=== PATIENT | female | born 1935 | race Caucasian/White ===

== ENCOUNTER 2019-09-19 07:44 | Outpatient (CLI) | payer MEDICARE, SELFPAY ==
[2019-09-19 08:17] LABS: Creatinine Urine 174.2 mg/dL; Total Protein Urine Random 17 mg/dL
[2019-09-19 08:25] LABS: Albumin Level 4.2 g/dL (3.5-5.1); Blood Urea Nitrogen 18 mg/dL (7-17); Calcium 9.5 mg/dL (8.4-10.2); Carbon Dioxide 27 mmol/L (22-30); Chloride 102 mmol/L (98-107); Estimated Glomerular Filt Rate 36; Glucose 120 mg/dL (65-105); Phosphorus 3.9 mg/dL (2.5-4.5); Potassium 3.8 mmol/L (3.4-5.0); Sodium 139 mmol/L (137-145)
== END 2019-09-19 07:45 | disposition home or self-care (01) ==
LOC: ANHLAB 07:48
PROVIDERS: PCP Family Medicine; Visit Provider Internal Medicine Nephrology
DX: N18.3 Chronic kidney disease, stage 3 (moderate) (principal)
CPT/HCPCS: 36415; 80069; 82570; 84156

== ENCOUNTER 2019-09-20 08:18 | Outpatient (CLI) | payer MEDICARE, SELFPAY ==
[2019-09-20 09:57] LABS: Total Volume 24 Hour Urine 1400 ml
== END 2019-09-20 08:19 | disposition home or self-care (01) ==
PROVIDERS: PCP Family Medicine; Visit Provider Internal Medicine Nephrology
DX: N18.3 Chronic kidney disease, stage 3 (moderate) (principal)
CPT/HCPCS: 81050; 84540

== ENCOUNTER 2020-02-06 11:18 | Outpatient (CLI) | payer MEDICARE, SELFPAY | END 2020-02-06 11:19 | disposition home or self-care (01) | LOC: ANHLAB 11:22 | PROVIDERS: PCP Family Medicine; Visit Provider Physician Assistant | DX: N39.0 Urinary tract infection, site not specified (principal) | CPT/HCPCS: 87086; 87088 ==

== ENCOUNTER 2020-04-27 07:07 | Outpatient (CLI) | payer MEDICARE, SELFPAY ==
--- NOTE | ~2020-04-27 | XR_ITS ---
XR lumbar spine 2-3V DATE: 04/27/2020 08:01 INDICATION: Back pain TECHNIQUE: AP, lateral, coned lateral lumbosacral views COMPARISON: None FINDINGS: There is levoscoliosis . There is prominent degenerative disc disease at L2-3, L3-4, L4-5. There is diffuse osteopenia. No fracture or bone destruction or spondylolisthesis. The sacroiliac joints are normal. IMPRESSION: Scoliosis Multi-level degenerative disc disease Osteopenia Reviewed, dictated and finalized at location A.
--- NOTE | ~2020-04-27 | XR_ITS ---
XR chest 2V DATE: 04/27/2020 08:01 INDICATION: Polyarthralgia TECHNIQUE: PA and lateral views COMPARISON: 06/10/2018 PA and lateral chest FINDINGS: Normal heart size. No hilar or mediastinal enlargement. No pulmonary infiltrate or consolid ation, pleural effusion or pulmonary vascular congestion or pneumothorax. Diffuse osteopenia. IMPRESSION: No active cardiopulmonary disease Reviewed, dictated and finalized at location A.
--- NOTE | ~2020-04-27 | XR_ITS ---
EXAMINATION: XR hand BI arthritis min 3V EXAM DATE: 04/27/2020 08:01 INDICATION: Polyarthralgia. TECHNIQUE: Right hand frontal, lateral and oblique projections obtained and reviewed. Left hand fron carola, lateral and oblique projections obtained and reviewed. Catchers projection of both hands. Compar alyssa is made to prior examination from 07/01/2019. 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 There are no bony erosions identified. There are no acute fractures o r dislocations identified. There is no subcutaneous gas. The soft tissue is unremarkable. There a re no radiopaque foreign bodies. Left hand: There is polyarticular primary osteoarthritis as follows: Moderate 1st carpometacarpal and 3rd distal interphalangeal, mild to moderate 2nd distal interphalangeal, otherwise mild interphalang eal. There are no acute fractures or dislocations identified. There is no subcutaneous gas. The sof t tissue is unremarkable. There are no radiopaque foreign bodies. There are no bony erosions ident ified. IMPRESSION: Bilateral hand, wrist polyarticular osteoarthritis, bilateral 1st carpometacarpal joints and left 3rd DIP joint most affected. Reviewed, dictated and finalized at location A. IMPRESSION: Bilateral hand, wrist polyarticular osteoarthritis, bilateral 1st c arpometacarpal joints and left 3rd DIP joint most affected.
--- NOTE | ~2020-04-27 | XR_ITS ---
XR sacroiliac joints min 3V DATE: 04/27/2020 08:01 INDICATION: Polyarthralgia. Sacroiliac pain. TECHNIQUE: AP and bilateral oblique views COMPARISON: None FINDINGS: The pubic symphysis and sacroiliac joints are intact. No fracture or dislocation. No erosiv e change or ankylosis. Hip joint spaces are symmetric and relatively preserved. Levoscoliosis and degenerative disc disease of the lumbar spine. IMPRESSION: Levoscoliosis and multilevel degenerative disc disease of the lumbar spine Negative sacroiliac joints Reviewed, dictated and finalized at Location A. Reviewed, dictated and finalized at location A. IMPRESSION: Levoscoliosis and multilevel degenerative disc disease of the lumba r spine Negative sacroiliac joints
--- NOTE | ~2020-04-27 | XR_ITS ---
XR hip RT min 2V 04/27/2020 08:01 Indication: Right hip pain Procedure: 2 views right hip Comparison: No prior studies for comparison. Findings: Mild osteoarthritis of the right hip. No fracture or traumatic malalignment. No significant soft tissue abnormality. No foreign body. Impression: 1: Mild osteoarthritis of the right hip. Reviewed, dictated and finalized at location A. Impression: 1: Mild osteoarthritis of the right hip.
== END 2020-04-27 07:08 | disposition home or self-care (01) ==
PROVIDERS: PCP Family Medicine; Visit Provider Physician Assistant
DX: M19.041 Primary osteoarthritis, right hand (principal); M19.042 Primary osteoarthritis, left hand; M19.031 Primary osteoarthritis, right wrist; M19.032 Primary osteoarthritis, left wrist; M51.36 Other intervertebral disc degeneration, lumbar region; M16.11 Unilateral primary osteoarthritis, right hip; M41.9 Scoliosis, unspecified; M85.88 Other specified disorders of bone density and structure, other site
CPT/HCPCS: 71046; 72100; 72202; 73130; 73502

== ENCOUNTER 2020-05-19 10:49 | Outpatient (CLI) | payer MEDICARE, SELFPAY ==
--- NOTE | ~2020-05-19 | XR_ITS ---
. EXAMINATION: XR lg joint inject/asp w image DATE: 05/19/2020 11:37 INDICATION: Unilateral primary osteoarthritis, right hip. TECHNIQUE: A time-out was performed to verify the patient's name, date of , and procedure to b e performed. The procedure including the risks, benefits, and alternatives was discussed with the pat ient. Risks discussed included bleeding and infection. The patient understood the risks and agreed to proceed. The skin overlying the right hip joint was prepped and draped in usual sterile fashion. A nesthetic was administered with 1% lidocaine subcutaneously. A 22 G needle was advanced under fluoro scopic guidance into the joint. Injection of 1 mL of Omnipaque 240 confirmed intra-articular positio n of the needle. Subsequently, injectate consisting of 5 mL 1% lidocaine and 2 mL 10 mg/mL Kenalog w as instilled. The needle was removed and the entry site was cleaned and dressed. There were no imme diate complications. Fluoroscopy exposure time was 0.0 minutes. The total number of images was 2. FINDINGS: Real-time fluoroscopy demonstrates the needle in the right hip joint. Patient's pain prior to procedure:0/10. IMPRESSION: 1. Right hip joint injection of local anesthetic and steroid. Reviewed, dictated and finalized at location A.
== END 2020-05-19 10:50 | disposition home or self-care (01) ==
PROVIDERS: PCP Family Medicine; Visit Provider Orthopaedic Surgery
DX: M16.11 Unilateral primary osteoarthritis, right hip (principal)
CPT/HCPCS: 20610; 77002; J3301; Q9966

== ENCOUNTER 2020-05-26 11:23 | Outpatient (CLI) | payer MEDICARE, SELFPAY ==
--- NOTE | ~2020-05-26 | MM_ITS ---
EXAMINATION: MM screening rommel BI w antoni HISTORY: Screening TECHNIQUE: Craniocaudal and mediolateral oblique 3-D tomosynthesis images were obtained and synthetic 2-D images were generated. CAD analysis was submitted and interpreted. COMPARISON: Comparison to multiple prior studies sequentially, with oldest reviewed study dated 12/2014. BREAST PARENCHYMAL COMPOSITION: There are scattered areas of fibroglandular density. FINDINGS: There is no evidence of suspicious mass, calcification, or architectural distortion to sugg est malignancy in either breast. There has been no suspicious interval change. IMPRESSION: 1. No mammographic evidence of malignancy. 2. Recommend routine screening mammography in one year. BI-RADS Category 1: Negative Reviewed, dictated and finalized at location A.
== END 2020-05-26 11:24 | disposition home or self-care (01) ==
LOC: ANHIMG 11:27
PROVIDERS: PCP Family Medicine; Visit Provider Family Medicine
DX: Z12.31 Encounter for screening mammogram for malignant neoplasm of breast (principal)
CPT/HCPCS: 77063; 77067

== ENCOUNTER 2020-06-01 06:45 | Outpatient (NON) | payer MEDICARE, SELFPAY ==
[2020-06-01 19:00] LABS: SARS-CoV-2 RNA PCR Negative
== END 2020-06-01 06:46 ==
PROVIDERS: PCP Family Medicine; Visit Provider Physician Assistant
DX: Z20.828 Contact with and (suspected) exposure to other viral communicable diseases (principal); R50.9 Fever, unspecified
CPT/HCPCS: 87635; C9803; U0003

== ENCOUNTER 2021-06-10 01:16 | Day surgery (SDC) | payer MEDICARE, SELFPAY ==
[2021-05-24 10:13] VITALS: BMI 24.3
[2021-06-10 06:51] VITALS: BP 132/73; PULSE 86; RESP 18; TEMP 36.6; O2SAT 100
[2021-06-10] MEDS: LACTATED RINGERS 1,000 ML 150 ML IV CONT (07:07)
--- NOTE | 2021-06-10 07:25 | WPDHPUPDATE1 ---
History and Physical Update Update Date/Time: 06/10/21 07:25 Patient reports less frequent bright red blood per rectum. Additionally she continues to have heartburn and is hesitant to take omeprazole for concern over osteopenia. Plan to proceed with colonoscopy because of recent rectal bleeding and prior history of colon polyps History and Physical has been reviewed, including an updated exam of the patient. There are NO changes in the patient's condition. Risks, benefits, and alternatives have been discussed and questions answered. Patient agrees to proceed with procedure.
[2021-06-10 08:27] VITALS: BP 91/47; PULSE 69; RESP 18; O2SAT 100
[2021-06-10 08:37] VITALS: BP 121/90; PULSE 70; RESP 18; O2SAT 100
[2021-06-10 08:47] VITALS: BP 116/92; PULSE 75; RESP 20; O2SAT 99
== END 2021-06-10 09:05 | disposition home or self-care (01) ==
PROVIDERS: PCP Family Medicine; Visit Provider Internal Medicine Gastroenterology
PROC: 0DJD8ZZ Inspection of Lower Intestinal Tract, Via Natural or Artificial Opening Endoscopic (ICD-10-PCS; CPT 45378; principal; 2021-06-10 08:00)
DX: K62.5 Hemorrhage of anus and rectum (principal); K64.8 Other hemorrhoids; K57.30 Diverticulosis of large intestine without perforation or abscess without bleeding; K63.5 Polyp of colon; J45.909 Unspecified asthma, uncomplicated; I12.9 Hypertensive chronic kidney disease with stage 1 through stage 4 chronic kidney disease, or unspecified chronic kidney disease; N18.9 Chronic kidney disease, unspecified; K58.9 Irritable bowel syndrome, unspecified; Z85.828 Personal history of other malignant neoplasm of skin; M79.7 Fibromyalgia; E78.5 Hyperlipidemia, unspecified; M47.816 Spondylosis without myelopathy or radiculopathy, lumbar region; E04.9 Nontoxic goiter, unspecified; K58.2 Mixed irritable bowel syndrome; D12.3 Benign neoplasm of transverse colon
CPT/HCPCS: 45385; 88305; J0690; J2704; J7120

== ENCOUNTER 2021-06-28 08:49 | Outpatient (CLI) | payer MEDICARE, SELFPAY ==
--- NOTE | ~2021-06-28 | MM_ITS ---
EXAMINATION: MM screening rommel BI w antoni HISTORY: Screening mammogram TECHNIQUE: Craniocaudal and mediolateral oblique 3-D tomosynthesis images were obtained and synthetic 2-D images were generated. CAD analysis was submitted and interpreted. COMPARISON: 05/26/2020, 05/08/2019, 04/15/2018 lateral screening mammogram examinations BREAST PARENCHYMAL COMPOSITION: There are scattered areas of fibroglandular density. FINDINGS: There are scattered bilateral benign calcifications. There is no evidence of suspicious mas s, calcification, or architectural distortion to suggest malignancy in either breast. There has been no suspicious interval change. IMPRESSION: 1. No mammographic evidence of malignancy. 2. Recommend routine screening mammography in one year. BI-RADS Category 2: Benign finding(s). Reviewed, dictated and finalized at location A. TANCE ABUSE SPECIALIST
== END 2021-06-28 08:50 | disposition home or self-care (01) ==
LOC: ANHIMG 08:53
PROVIDERS: PCP Family Medicine; Visit Provider Nurse Practitioner Family
DX: Z12.31 Encounter for screening mammogram for malignant neoplasm of breast (principal)
CPT/HCPCS: 77063; 77067

== ENCOUNTER 2021-08-22 16:02 | Outpatient (CLI) | payer MEDICARE, SELFPAY ==
--- NOTE | ~2021-08-22 | XR_ITS ---
EXAMINATION: XR hand RT 2V EXAM DATE: 08/22/2021 16:19 INDICATION: M79.641 - Pain in right hand . TECHNIQUE: Right hand frontal, lateral projections obtained and reviewed. Comparison is made to prior examination from 04/27/2020. FINDINGS: Right metacarpal bones are unremarkable. There is severe 1st carpometacarpal, moderate tri scaphe primary osteoarthritis. There is triangular fibrocartilage calcification, chondrocalcinosis. Chondrocalcinosis can be an age related finding, but with other possible etiologies including CPPD, p arathyroid disorders, hemochromatosis, gout. There is moderate 1st interphalangeal, 2nd distal interphalangeal primary osteoarthritis. Less osteo arthritis at the other digits and metacarpal phalangeal joints. There are no bony erosions identified . There are no acute fractures identified. No radiopaque foreign bodies identified. There is no signi ficant interval change. IMPRESSION: 1. Polyarticular osteoarthritis, severe at the 1st carpometacarpal joint. 2. Chondrocalcinosis. Reviewed, dictated and finalized at location A. TOR TRAILER MOVING VAN DRIVER
== END 2021-08-22 16:03 | disposition home or self-care (01) ==
PROVIDERS: PCP Family Medicine; Visit Provider Family Medicine
DX: M19.041 Primary osteoarthritis, right hand (principal)
CPT/HCPCS: 73120

== ENCOUNTER 2021-11-09 09:58 | Outpatient (CLI) | payer MEDICARE, SELFPAY ==
--- NOTE | ~2021-11-09 | US_ITS ---
US renal BI 11/09/2021 10:28 Procedure: Realtime transabdominal ultrasound of the kidneys and bladder. Indication: Stage IIIB chronic kidney disease Comparison: No prior studies for comparison. Findings: Right kidney surgically absent. Left renal echotexture is normal without hydronephrosis, co ntour deforming mass or renal calculi. There is a 1 cm cyst in the left kidney. Left renal length is 10.4 cm. Bladder is not well distended for evaluation. Impression: 1: Unremarkable left kidney without hydronephrosis, solid mass or renal stone. Reviewed, dictated and finalized at location A. Impression: 1: Unremarkable left kidney without hydronephrosis, solid mass or renal stone.
== END 2021-11-09 09:59 | disposition home or self-care (01) ==
LOC: ANHIMG 10:01
PROVIDERS: PCP Family Medicine; Visit Provider Internal Medicine Nephrology
DX: N18.32 Chronic kidney disease, stage 3b (principal)
CPT/HCPCS: 76775

== ENCOUNTER 2022-02-17 11:28 | Outpatient (CLI) | payer MEDICARE, SELFPAY ==
--- NOTE | ~2022-02-17 | XR_ITS ---
EXAMINATION: XR thoracic spine 3V DATE: 02/17/2022 11:56 INDICATION: Left-sided pain TECHNIQUE: AP, lateral and lateral swimmer's views of the thoracic spine were obtained. COMPARISON: None. FINDINGS: There is no fracture, dislocation, or subluxation. The vertebral body heights are normal. T here is moderate loss of intervertebral disc space height in the midthoracic spine. Small degenerativ e osteophytes project from the anterior endplates of multiple vertebral bodies. There is partially im aged lumbar levoscoliosis. The heart size is normal. IMPRESSION: 1. Moderate thoracic spondylosis. Reviewed, dictated and finalized at location F.
--- NOTE | ~2022-02-17 | XR_ITS ---
EXAMINATION: XR lumbar spine 2-3V DATE: 02/17/2022 11:56 INDICATION: Low back pain TECHNIQUE: Anteroposterior and lateral views of the lumbar spine, and cone-down lateral view of the l umbosacral junction were obtained. COMPARISON: 04/27/2020 FINDINGS: There are 17 degrees of lumbar levoscoliosis. There is no fracture. Bone alignment is isac l. There is unchanged severe loss of intervertebral disc space height at L2-3 and L3-4. Moderate locu lated disc space height is present throughout the remainder of the lumbar spine. There is severe face t osteoarthritis of the lower lumbar spine. The bowel gas pattern is normal. IMPRESSION: 1. Severe lumbar spondylosis without acute findings or significant interval change. Reviewed, dictated and finalized at location F. IMPRESSION: 1. Severe lumbar spondylosis without acute findings or significant interval sebas nge.
== END 2022-02-17 11:29 | disposition home or self-care (01) ==
PROVIDERS: PCP Family Medicine; Visit Provider Nurse Practitioner Family
DX: M47.896 Other spondylosis, lumbar region (principal); M47.894 Other spondylosis, thoracic region
CPT/HCPCS: 72072; 72100

== ENCOUNTER 2022-02-22 16:22 | Outpatient (CLI) | payer MEDICARE, SELFPAY ==
--- NOTE | ~2022-02-22 | US_ITS ---
US renal BI 02/22/2022 16:49 Procedure: Realtime transabdominal ultrasound of the kidneys and bladder. Indication: Stage IIIB chronic kidney disease Comparison: Ultrasound dated 11/09/2021 Findings: Right kidney is surgically absent. Left renal echotexture is normal with the exception of a 1.3 cm cyst. No hydronephrosis, solid masses or stones. Bladder is unremarkable. Impression: 1: Left renal cyst measuring 1.3 cm. Reviewed, dictated and finalized at location A. Impression: 1: Left renal cyst measuring 1.3 cm.
== END 2022-02-22 16:23 | disposition home or self-care (01) ==
PROVIDERS: PCP Family Medicine; Visit Provider Internal Medicine Nephrology
DX: N18.32 Chronic kidney disease, stage 3b (principal); N28.1 Cyst of kidney, acquired
CPT/HCPCS: 76775

== ENCOUNTER 2022-04-03 13:14 | Outpatient (CLI) | payer MEDICARE, SELFPAY ==
[2022-04-03 19:03] LABS: Alanine Aminotransferase 17 U/L (6-35); Albumin Level 4.4 g/dL (3.5-5.1); Alkaline Phosphatase 73 U/L (38-126); Aspartate Amino Transferase 31 U/L (14-36); Bilirubin,Total 0.2 mg/dL (0.2-1.3)
== END 2022-04-03 13:15 | disposition home or self-care (01) ==
LOC: ANHGOSHLAB 13:19
PROVIDERS: PCP Family Medicine; Visit Provider Dermatology
DX: B35.1 Tinea unguium (principal)
CPT/HCPCS: 36415; 80076

== ENCOUNTER 2022-08-22 14:45 | Outpatient (CLI) | payer MEDICARE, SELFPAY ==
--- NOTE | ~2022-08-22 | MM_ITS ---
EXAMINATION: MM screening rommel BI w antoni HISTORY: Screening mammogram, family history of breast cancer in her mother and daughter. TECHNIQUE: Craniocaudal and mediolateral oblique 3-D tomosynthesis images were obtained and synthetic 2-D images were generated. CAD analysis was submitted and interpreted. COMPARISON: 06/28/2021, 05/26/2020, 05/08/2019 BREAST PARENCHYMAL COMPOSITION: There are scattered areas of fibroglandular density. FINDINGS: There are chronic areas of architectural distortion in the breasts consistent with changes from excisional biopsy. No suspicious mass, calcification, or architectural distortion are identified in either breast to suggest malignancy. There has been no suspicious interval change. IMPRESSION: 1. No mammographic evidence of malignancy. 2. Recommend routine screening mammography while the patient remains in good health. BI-RADS Category 2: Benign finding(s). Reviewed, dictated and finalized at location A. CIATE PROGRAMMER ANALYST IMPRESSION: 1. No mammographic evidence of malignancy. 2. Recommend routine screening mammography while the patient remains in good he alth. BI-RADS Category 2: Benign finding(s).
== END 2022-08-22 14:46 | disposition home or self-care (01) ==
PROVIDERS: PCP Family Medicine; Visit Provider Family Medicine
DX: Z12.31 Encounter for screening mammogram for malignant neoplasm of breast (principal)
CPT/HCPCS: 77063; 77067

== ENCOUNTER 2022-08-29 10:40 | Outpatient (CLI) | payer MEDICARE, SELFPAY ==
--- NOTE | ~2022-08-29 | CT_ITS ---
EXAMINATION: CT abdomen pelvis wo con DATE: 08/29/2022 11:53 INDICATION: Right lower quadrant abdominal pain TECHNIQUE: Computed tomography (CT) of the abdomen and pelvis was performed without intravenous contr ast. The dose-length product (DLP) was 286.97 mGy-cm. Automated exposure control and iterative recons truction technique were employed. COMPARISON: 07/23/2019 FINDINGS: There are trace pleural effusions. Minimal dependent atelectasis is present in the lung bas es. The heart size is normal. Punctate calcifications in an otherwise normal spleen likely represent healed granulomatous disease. The liver, pancreas, gallbladder, and adrenal glands are normal. The ri ght kidney is absent. The left kidney is unremarkable. There is calcified atherosclerosis of the aort a and many of the other arteries. No pathologically enlarged abdominal or pelvic lymph nodes are iden tified. There is no free intraperitoneal gas or evidence of bowel obstruction. There is colonic diver ticulosis. There is minimal inflammatory change adjacent to the descending colon. There is severe lum bar spondylosis. There is moderate osteoarthritis of the hips. IMPRESSION: 1. Uncomplicated mild diverticulitis of the descending colon. Reviewed, dictated and finalized at location L. AND BEVERAGE ORDER CLERK
== END 2022-08-29 10:41 | disposition home or self-care (01) ==
PROVIDERS: PCP Family Medicine; Visit Provider Nurse Practitioner
DX: K57.32 Diverticulitis of large intestine without perforation or abscess without bleeding (principal)
CPT/HCPCS: 74176

== ENCOUNTER 2022-09-07 08:19 | Outpatient (CLI) | payer MEDICARE, SELFPAY ==
[2022-09-07 09:36] LABS: Influenza A QL RT-PCR Negative (Negative); Influenza B QL RT-PCR Negative (Negative); SARS-CoV-2 RNA PCR Positive
== END 2022-09-07 08:20 | disposition home or self-care (01) ==
LOC: ANHLAB 08:21
PROVIDERS: PCP Family Medicine; Visit Provider Physician Assistant
DX: U07.1 COVID-19 (principal)
CPT/HCPCS: 87636

== ENCOUNTER 2023-03-16 14:17 | Outpatient (CLI) | payer MEDICARE, SELFPAY ==
--- NOTE | ~2023-03-16 | US_ITS ---
US renal BI 03/16/2023 14:42 Procedure: Realtime transabdominal ultrasound of the kidneys and bladder. Indication: Acquired absence of the kidney. Left-sided abdomen pain. Comparison: Ultrasound dated 02/22/2022 Findings: Left renal echotexture is normal without hydronephrosis, mass or stone. Left kidney measure s 10.9 cm. Right kidney is surgically absent. Bladder is not well distended for evaluation. Impression: 1: Unremarkable left renal ultrasound. Reviewed, dictated and finalized at location A. Impression: 1: Unremarkable left renal ultrasound.
== END 2023-03-16 14:18 | disposition home or self-care (01) ==
PROVIDERS: PCP Family Medicine; Visit Provider Family Medicine
DX: I10 Essential (primary) hypertension (principal); R10.9 Unspecified abdominal pain; Z90.5 Acquired absence of kidney
CPT/HCPCS: 76775

== ENCOUNTER 2023-04-26 08:00 | Outpatient (CLI) | payer MEDICARE, SELFPAY ==
--- NOTE | ~2023-04-26 | MR_ITS ---
MRI of the lumbar spine Clinical History: Sciatica Technique: Axial T2-weighted images, and sagittal T1-weighted, T2-weighted, and T2 fat-sat images wer e acquired. Findings: There is mild levoscoliosis of lumbar spine. No fracture evident. There is reactive marrow signal changes about the L2-L3 disc space due to underlying degenerative disc disease. At L1-L2, there is diffuse disc bulge with moderate to severe facet arthropathy. No beto central can al stenosis. There is moderate bilateral neural foraminal narrowing. At L2-L3, there is advanced degenerative disc narrowing. There is mild disc bulge with moderate to ad vanced facet arthropathy and right lateral recess stenosis. There is moderate right neural foraminal narrowing. At L3-L4, there is advanced degenerative disc narrowing. There is disc bulge and moderate facet arthr opathy. No beto central canal stenosis. There is severe right neural foraminal narrowing. Left neura l foramen preserved. At L4-L5, there is disc bulge and severe facet arthropathy. No beto central canal stenosis. There is mild to moderate left neural foraminal narrowing. At L5-S1, there is no disc bulge or herniation. There is advanced facet arthropathy. No central canal stenosis. There is moderate left neural foraminal narrowing. Paravertebral soft tissues are unremarkable. Impression: Moderate degenerative spondylosis, as above. Mild levoscoliosis. Reviewed, dictated and finalized at [facility]. Impression: Moderate degenerative spondylosis, as above. Mild levoscoliosis.
== END 2023-04-26 08:01 | disposition home or self-care (01) ==
LOC: ANHIMG 08:03
PROVIDERS: PCP Family Medicine; Visit Provider Family Medicine
DX: M47.816 Spondylosis without myelopathy or radiculopathy, lumbar region (principal); M41.86 Other forms of scoliosis, lumbar region; M54.30 Sciatica, unspecified side
CPT/HCPCS: 72148

== ENCOUNTER 2023-09-18 10:48 | Outpatient (CLI) | payer MEDICARE, SELFPAY ==
--- NOTE | ~2023-09-18 | XR_ITS ---
XR sacrum coccyx min 2V DATE: 09/18/2023 11:08 INDICATION: Fall 3 days ago. Pain in the buttocks. TECHNIQUE: AP, angled AP and lateral views COMPARISON: None FINDINGS: There is osteopenia. Levoscoliosis and multilevel degenerative disc disease of the lumbar spine. The pubic symphysis and sacroiliac joints are intact. No sacral fracture or bone destruction or fract ure of the coccyx is evident. Mild left and moderate right hip osteoarthritis. IMPRESSION: Osteopenia Levoscoliosis and multilevel degenerative disc disease of the lumbar spine Bilateral hip osteoarthritis, moderate in right, mild on left No detected fracture or bone destruction of sacrum or coccyx Reviewed, dictated and finalized at location L. ING EQUIPMENT TENDER
== END 2023-09-18 10:49 | disposition home or self-care (01) ==
PROVIDERS: PCP Family Medicine; Visit Provider Physician Assistant
DX: M53.3 Sacrococcygeal disorders, not elsewhere classified (principal)
CPT/HCPCS: 72220

== ENCOUNTER 2023-10-23 11:12 | Outpatient (CLI) | payer MEDICARE, SELFPAY ==
--- NOTE | ~2023-10-23 | XR_ITS ---
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 RESULT: Lines, tubes, and devices: None. Lungs and pleura: Clear. Cardiomediastinal silhouette: Stable. Other: No acute osseous or upper abdominal finding. IMPRESSION: No acute cardiopulmonary process. Reviewed, dictated and finalized at location K. AND STEEL WORK SUPERVISOR
== END 2023-10-23 11:13 | disposition home or self-care (01) ==
PROVIDERS: PCP Family Medicine; Visit Provider Family Medicine
DX: R05.9 Cough, unspecified (principal)
CPT/HCPCS: 71046

== ENCOUNTER 2023-11-23 15:28 | Outpatient (CLI) | payer MEDICARE, SELFPAY ==
--- NOTE | ~2023-11-23 | MM_ITS ---
EXAMINATION: MM screening rommel BI w antoni HISTORY: Screening mammogram TECHNIQUE: Craniocaudal and mediolateral oblique 3-D tomosynthesis images were obtained and synthetic 2-D images were generated. CAD analysis was submitted and interpreted. COMPARISON: 1534 2022, 07/08/2021 bilateral screening mammogram examinations BREAST PARENCHYMAL COMPOSITION: There are scattered areas of fibroglandular density. FINDINGS: Scattered bilateral benign calcifications. There is no evidence of suspicious mass, calcifi cation, or architectural distortion to suggest malignancy in either breast. There has been no suspici ous interval change. IMPRESSION: 1. No mammographic evidence of malignancy. 2. Recommend routine screening mammography in one year. BI-RADS Category 2: Benign finding(s). Reviewed, dictated and finalized at location B.
== END 2023-11-23 15:29 | disposition home or self-care (01) ==
LOC: ANHIMG 15:31
PROVIDERS: PCP Family Medicine; Visit Provider Family Medicine
DX: Z12.31 Encounter for screening mammogram for malignant neoplasm of breast (principal)
CPT/HCPCS: 77063; 77067

== ENCOUNTER 2024-04-22 10:44 | Outpatient (CLI) | payer MEDICARE, SELFPAY ==
--- NOTE | ~2024-04-22 | MR_ITS ---
MRI of the brain Clinical History: Headache Technique: Axial and sagittal T1-weighted images were acquired. These were followed by axial T2-weigh sarwat, diffusion weighted, gradient, and FLAIR images. COMPARISON: 02/04/2013 Findings: There is no acute infarct, internal hemorrhage, or mass lesion identified. There are mild c hronic white matter changes in the periventricular white matter bilaterally. Ventricles and subarachnoid spaces are minimally dilated. Orbits are unremarkable. Paranasal sinuses and mastoid air cells are clear. Major intracranial flow voids are intact. Sagittal midline structures are intact. There is a 1.5 cm lesion in the left frontal scalp, likely cy st with proteinaceous or hemorrhagic material within it, given T2 and T1 weighted hyperintensity. IMPRESSION: No intracranial hemorrhage, intracranial mass, or acute infarct. Mild chronic microvascular ischemic changes. 1.5 cm probable benign proteinaceous cystic or hemorrhagic cystic lesion in the left frontal scalp, a s above. Reviewed, dictated and finalized at [facility]. IMPRESSION: No intracranial hemorrhage, intracranial mass, or acute infarct. Mild chronic microvascular ischemic changes. 1.5 cm probable benign proteinaceous cystic or hemorrhagic cystic lesion in the left frontal scalp, as above.
== END 2024-04-22 10:45 | disposition home or self-care (01) ==
PROVIDERS: PCP Family Medicine; Visit Provider Physician Assistant
DX: I67.89 Other cerebrovascular disease (principal); R51.9 Headache, unspecified
CPT/HCPCS: 70551

== ENCOUNTER 2024-11-28 10:23 | Emergency (ER) | payer MEDICARE, SELFPAY ==
[2024-11-28 10:30] VITALS: BP 155/92; PULSE 46; RESP 16; TEMP 36.3; O2SAT 100
--- NOTE | 2024-11-28 11:03 | ED_ITS ---
HPI - Ear Problem General Chief complaint: Ear Stated complaint: EARS CLOGGED Time Seen by Provider: 11/28/24 10:45 Source: patient and RN notes reviewed Mode of arrival: ambulatory Limitations: no limitations History of Present Illness HPI Narrative: 89-year-old female presents Express Care complaining of decreased hearing in and ear fullness for 2 days. Patient states her hearing is decreased on the right side. Patient does wear hearing aids bilaterally. Patient was at hearing aid office when they said that her right ear is full earwax. She denies any pain, fevers, chills, cough, congestion. Patient was sent here to have the earwax removed. Related Data Home Medications ?Medication ?Instructions ?Recorded ?Confirmed ?Last Taken ?Type Lactobacillus acidophilus 10 1 cell PO DAILY 07/01/19 11/28/24 06/08/21 History billion cell capsule (Probiotic) omega 6-sdv-nka-fish oil 1,000 mg 1 cap PO DAILY 08/08/19 11/28/24 06/08/21 History (120 mg-180 mg) capsule (Fish Oil) calcium carbonate 600 mg PO DAILY 02/17/22 11/28/24 Unknown History psyllium husk 0.4 gram capsule 0.4 g PO DAILY 05/29/23 11/28/24 Unknown History (Fiber (psyllium husk)) hydroxychloroquine 200 mg tablet 200 mg PO DAILY 08/21/24 11/28/24 Unknown History pravastatin 20 mg tablet 20 mg PO DAILY 08/21/24 11/28/24 Unknown History hydrochlorothiazide 25 mg tablet 25 mg PO DAILY 11/28/24 11/28/24 Unknown History potassium chloride 10 mEq meq PO 11/28/24 Unknown History tablet,extended release Allergies Allergy/AdvReac Type Severity Reaction Status Date / Time moxifloxacin Allergy Severe RASH Verified 11/28/24 10:31 donepezil Allergy Intermediate MUSCLE Verified 11/28/24 10:31 PROBLEMS Sulfa (Sulfonamide Allergy Mild Nausea and Verified 11/28/24 10:31 Antibiotics) Vomiting sulfanilamide Allergy Unknown Nausea and Verified 11/28/24 10:31 Vomiting adhesive AdvReac Severe PLASTIC Verified 11/28/24 10:31 TAPE= SKIN TEARS/ BLISTER. CAN USE PAPER TAPE tramadol AdvReac Severe Headache Verified 11/28/24 10:31 mushroom AdvReac Mild Nausea and Verified 11/28/24 10:31 Vomiting levofloxacin AdvReac Unknown Unknown Verified 11/28/24 10:31 Review of Systems Review of Systems: CONSTITUTIONAL: Denies fever, chills, or sweats. EYES: Denies visual changes, redness, or discharge. ENT: Denies rhinorrhea, congestion, sore throat, or otalgia. Positive for decreased hearing and ear fullness. CARDIOVASCULAR: Denies chest pain, palpitations, or edema. RESPIRATORY: Denies cough or dyspnea. GASTROINTESTINAL: Denies abdominal pain, nausea, vomiting, or diarrhea. GENITOURINARY: Denies dysuria or hematuria. SKIN: Denies rash or itching. MUSCULOSKELETAL: Denies back pain, joint pain, or myalgia. NEUROLOGIC: Denies headache, numbness, or weakness. PSYCHIATRIC: Denies anxiety or depression. All other systems reviewed are negative, except as documented in HPI. 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 H/O blood clots Thyroid goiter IBS (irritable bowel syndrome) CKD (chronic kidney disease) Skin cancer, basal cell Asthma Hypertension Hyperlipidemia Fibromyalgia Migraine without aura Internal hemorrhoids Colon polyp SCC (squamous cell carcinoma), scalp/neck Surgical History Surgical History Hx of dilation and curettage History of local excision of skin lesion H/O repair of rotator cuff Hx of partial thyroidectomy Hx of bladder repair surgery S/P complete hysterectomy H/O right breast biopsy History of right nephrectomy Hx of ureterostomy History of bilateral knee replacement Hx of carpal tunnel repair Hx of bilateral cataract extraction Hx of esophagogastroduodenoscopy Hx of colonoscopy History of [place]aley fundoplication Hx of appendectomy Family History Family History Grandparent Family history of thyroid disease Family history of obesity Father Family history of mental disorder Depression Hypertension Asthma Family history of alcoholism Family history of chronic obstructive pulmonary disease Family history of lung disease Family history of colitis Family history of emphysema Family history of heart disease in male family member before age 55 Patient's father is Family history of arthritis Mother Family history of mental disorder Depression Family history of cataracts Hypertension Asthma Cerebrovascular accident Family history of arthritis Family history of Alzheimer's disease Family history of diabetes mellitus in first degree relative Family history of atrial fibrillation Family history of heart disease in male family member before age 55 Patient's mother is Family history of malignant neoplasm of breast in first degree relative Sibling Patient's sister is in good health Other Diabetes mellitus Family history of allergic disorder Family history of cardiovascular disease Family history of coronary artery disease Social History Social History Smoking status: Never smoker Second hand tobacco smoke exposure: No Alcohol intake: never Substance use: never Do You Feel Safe in your Home?: Yes Lack of Transportation: No Lack of Food: Never True Current Housing: I Have Housing Concerned About Future Housing: No Difficulty Paying Gas/Electric Bills: No Difficulty Paying for Meds: No Currently Unemployed: No Education: High School Diploma/GED Difficulty w/ Childcare or Family Care: No Living arrangements: with family Occupation/Education: retired Gender identity (if verbalized by the patient): Female Sexual Orientation (if Verbalized by the Patient): Straight or Heterosexual Spiritual care concerns: No Comments At the time of my signature, I reviewed and agree with the nursing past medical, surgical, social, and family history. There is no relevant family history pertinent to the patient complaint. Exam Narrative: GENERAL: This is a well-nourished, well-developed adult, in no apparent distress. They are non ill-appearing, nontoxic appearing. HEAD: normocephalic, atraumatic. EYES: Sclera clear/white. Vision is grossly intact. EARS: External ears normal, right auditory canal with cerumen present, unable to visualize TM, left auditory canal without discharge. TM normal without perforation. Diminished hearing on the right side. NOSE: External nose normal with no obvious nasal discharge, nares without redness, no rhinorrhea. THROAT: Mucous membranes moist, posterior pharynx clear. NECK: Neck supple, non-tender without lymphadenopathy, masses or thyromegaly. CARDIOVASCULAR: Regular rate and rhythm RESPIRATORY: Normal respiratory rate. Respiratory effort is nonlabored. No respiratory distress SKIN: warm, Dry, intact with no suspicious lesions or rash, good texture and turgor. NEURO: awake, alert, and oriented to person, place and time. There were no obvious focal neurologic abnormalities. EXTREMITIES: No joint tenderness, effusion, or edema noted. Course Course Level of Care: Express Care Visit Vital Signs Vital signs: Vital Signs Temperature 97.4 F L 11/28/24 10:30 Pulse Rate 46 L 11/28/24 10:30 Respiratory Rate 16 11/28/24 10:30 Blood Pressure 155/92 H 11/28/24 10:30 Pulse Oximetry 100 11/28/24 10:30 Temperature 97.4 F L 11/28/24 10:30 Pulse Rate 46 L 11/28/24 10:30 Respiratory Rate 16 11/28/24 10:30 Blood Pressure 155/92 H 11/28/24 10:30 Pulse Oximetry 100 11/28/24 10:30 Reviewed Procedures Ear Wax Removal Right Ear: Ear Wax Removal Date: 11/28/24 Ear Wax Removal Time: 10:46 Cerumenolytic Used: other (Water mixed with a little bit of hydrogen peroxide) Results: Re-examined: cerumen removed completely TM Examination: TM(s) intact, normal appearance Ear Canal Exam: bleeding Noted Patient Tolerated Procedure: well Complications: no problems Technique: ear canal irrigated and ear canal curetted Additional Comments: Patient tolerated procedure well. Right ear canal with bloody discharge and mild erythema, no swelling. Right TM is intact without erythema, perforation, or discharge. Medical Decision Making MDM Narrative Medical decision making narrative: Successful irrigation to the right ear. Left ear was unremarkable. Patient did have bloody discharge and some erythema present to the right ear canal, we will treat prophylactically with antibiotic ear drops. Discussed physical exam findings. Advised supportive measures and signs/symptoms to go to the ER. Pt is appropriate for outpt treatment and f/u. Vital Signs Vital Signs: Vital Signs Temperature 97.4 F L 11/28/24 10:30 Pulse Rate 46 L 11/28/24 10:30 Respiratory Rate 16 11/28/24 10:30 Blood Pressure 155/92 H 11/28/24 10:30 Pulse Oximetry 100 11/28/24 10:30 Temperature 97.4 F L 11/28/24 10:30 Pulse Rate 46 L 11/28/24 10:30 Respiratory Rate 16 11/28/24 10:30 Blood Pressure 155/92 H 11/28/24 10:30 Pulse Oximetry 100 11/28/24 10:30 Critical Care Time Critical Care Time Critical Care Time: No Discharge Plan Discharge Clinical Impression: Cerumen impaction Qualifiers: Laterality: right Qualified Code(s): H61.21 - Impacted cerumen, right ear Patient Disposition: Home Condition: Stable Instructions: Antibiotic Form, How to Use Ear Drops (ED), Ear Infection (ED) Additional Instructions: The earwax was removed out of your right ear today. Please use the ear drops as directed to the right ear. Do not wear your hearing aid in your right ear for until you have completed your antibiotics. Avoid getting water in your ears. If you continue to have problems with earwax you may use edkn-qmt-ufyfemo Debrox to soften your earwax. Follow up with your personal physician for further evaluation and treatment within 3-5days. If your symptoms persist, change or worsen significantly, go to the emergency department for further evaluation. Patient Language: Malawian Prescriptions: New luaamiel-eesorl-LQ-thonzonium 3.3-3-10-0.5 mg/mL drops,suspension 4 drp RIGHT EAR TID 7 Days Qty: 10 0RF No Action hydrochlorothiazide 25 mg tablet 25 mg PO DAILY potassium chloride 10 mEq tablet extended release PO calcium carbonate 600 mg calcium (1,500 mg) tablet 600 mg PO DAILY chlorthalidone 25 mg tablet 25 mg PO DAILY Qty: 30 8RF pravastatin 20 mg tablet 20 mg PO DAILY hydroxychloroquine 200 mg tablet 200 mg PO DAILY Probiotic 10 billion cell capsule 1 cell PO DAILY psyllium husk [Fiber (psyllium husk)] 0.4 gram capsule 0.4 g PO DAILY oxybutynin chloride 5 mg tablet extended release 24hr 5 mg PO DAILY Qty: 30 5RF famotidine 20 mg tablet See Rx Instructions .ROUTE .COMPLEX Qty: 60 3RF Dose Instruction: Take 1 tablet by mouth twice daily Rx Instructions: Take 1 tablet by mouth twice daily dicyclomine 20 mg tablet 20 mg PO BID Qty: 180 1RF omega 1-wcg-rui-fish oil [Fish Oil] 1,000 mg (120 mg-180 mg) Capsule 1 cap PO DAILY azelastine 137 mcg (0.1 %) spray,non-aerosol 2 spray NASAL Q12H Qty: 30 2RF montelukast 10 mg tablet See Rx Instructions .ROUTE .COMPLEX Qty: 90 2RF Dose Instruction: Take 1 tablet by mouth once daily Rx Instructions: Take 1 tablet by mouth once daily amlodipine 2.5 mg tablet 2.5 mg PO DAILY Qty: 30 2RF Rx Instructions: Take 5 mg in the morning, 2.5 mg in the evening amlodipine 5 mg tablet 5 mg PO DAILY Qty: 90 2RF Rx Instructions: Take 5 mg in the morning, 2.5 mg in the evening Follow-up/Referrals: Josh Cohen MD [Primary Care Provider] - Time of Disposition: 10:55
[2024-11-28] MEDS: HYDROGEN PEROXIDE 3% TOPICAL SOLUTION 118 ML BOTTLE 10 ML IRRIGATION (11:06)
== END 2024-11-28 11:08 | disposition home or self-care (01) ==
PROVIDERS: PCP Family Medicine
DX: H61.21 Impacted cerumen, right ear (principal); I12.9 Hypertensive chronic kidney disease with stage 1 through stage 4 chronic kidney disease, or unspecified chronic kidney disease; N18.9 Chronic kidney disease, unspecified; E78.5 Hyperlipidemia, unspecified; N32.81 Overactive bladder; J45.909 Unspecified asthma, uncomplicated; M79.7 Fibromyalgia; E04.9 Nontoxic goiter, unspecified; M16.11 Unilateral primary osteoarthritis, right hip; M47.816 Spondylosis without myelopathy or radiculopathy, lumbar region; K58.9 Irritable bowel syndrome, unspecified; Z85.828 Personal history of other malignant neoplasm of skin; Z90.89 Acquired absence of other organs; Z96.653 Presence of artificial knee joint, bilateral; Z90.5 Acquired absence of kidney; Z98.42 Cataract extraction status, left eye; Z98.41 Cataract extraction status, right eye
CPT/HCPCS: 69210; 99213; A9270; G0463

== ENCOUNTER 2025-04-06 17:09 | Outpatient (CLI) | payer MEDICARE, SELFPAY ==
--- NOTE | ~2025-04-06 | XR_ITS ---
XR chest 2V 04/06/2025 17:28 Indication: Cough. Chest discomfort. Recent Covid infection. Procedure: PA and lateral views of the chest Comparison: Comparison to multiple prior studies sequentially, with oldest reviewed study dated 06/20. Findings: There is right middle lobe airspace consolidation. Heart size normal. Left lung clear. No s ignificant effusion or pneumothorax. No edema. Impression: 1: Right middle lobe airspace disease, compatible with pneumonia. Reviewed, dictated and finalized at location A. Impression: 1: Right middle lobe airspace disease, compatible with pneumonia.
--- OUTSIDE RECORDS SUMMARY | 2025-04-06 17:13 | XMS_ITS | Clinical Summary ---
Author Organization [facility] Address [address] [place] [address] [address] [place] [address] Phone Care Team Providers Care Milliner Helper Name Role Phone Josh Cohen MD Primary Care Provider Allergies Active Allergy Reactions Criticality Noted Date Comments Fluticasone-Salmeterol Other (see Comments) hoarseness Albuterol Other (see Comments) Causes patient to pass out Moxifloxacin Hcl In Nacl Other (see Comments) Skin rash/hives Erythromycin Other (see Comments) Nausea/vomitting, diarrhea Erythromycin Base Rash Medium 02/15/2016 Hydrocodone-Acetaminoph en Other (see Comments) Skin rash/hives Propranolol Other (see Comments) Bad dreams Latex Other (see Comments) Skin rash/hives Other Other (see Comments) 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 Active Multiple Vitamin (MULTIVITAMINS) Capsule Take by mouth daily. Active pravastatin (PRAVACHOL) 20 MG Tablet Take 20 mg by mouth daily. Active losartan (COZAAR) 50 MG Tablet Take 50 mg by mouth daily. Active Carboxymethylcel l-Hypromellose (GENTEAL OP) Place in affected eye(s) nightly. Active acetaminophen (TYLENOL) 650 MG Tablet Controlled Release Active atorvastatin (LIPITOR) 10 MG Tablet Take by mouth. Active amLODIPine (NORVASC) 5 MG Tablet Active Fish Oil Oil Active dicyclomine (BENTYL) 20 MG Tablet Take 1 Tab by mouth every 6 hours as needed. 120 Tab 0 6 Active montelukast (SINGULAIR) 10 MG Tablet Take 10 mg by mouth every evening. Active furosemide (LASIX) 20 MG Tablet Take 20 mg by mouth. Active Biotin 5 MG Capsule Take 5 mg by mouth. Active omeprazole (PriLOSEC) 40 MG CAPSULE DELAYED RELEASEIndicatio ns:Gastroesophag eal reflux disease, unspecified whether esophagitis present Take 1 Cap by mouth daily. 90 Cap 3 0 Active AZELASTINE-FLUTI CASONE NA 1 [place] by Nasal route every morning and at bedtime. Active Active Problems Problem Noted Date Diagnosed Date GERD (gastroesophageal reflux disease) Overview (06/10/2015): Increase pantoprazole to twice a day. 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 Immunizations Immunization Administration Dates Next Due Influenza Vaccine less than 3 yrs 06/10/2019 Family History Medical History Relation Name Comments Breast Cancer Daughter Arthritis Father Asthma Father Chronic Obstructive Pulmonary Disease Father Heart Disease Father Skin Cancer Father Arthritis Mother Asthma Mother Breast Cancer Mother Cancer Mother breast Heart Disease Mother Skin Cancer Mother Stroke Mother Relation Name Status Comments Daughter Father Mother Social History Tobacco Use Types Packs/Day Years Used Date Smoking Tobacco: Never Smokeless Tobacco: Never Tobacco Cessation:Counseling Given: No Alcohol Use Standard Drinks/Week Comments Not Currently 0 (1 standard drink = 0.6 oz pur e alcohol) Occasionally Sexually Active Control Partners Comments Not Currently Comments No Sex and Gender Information Value Date Recorded Sex Assigned at Not on file Legal Sex Female 10:13 PM CDT Gender Identity Not on file Sexual Orientation Not on file Occupation Industry Job Start Date Job End 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 on larry e Not on file Not on file Last Filed Vital Signs Vital Sign Reading Time Taken Comments Blood Pressure 114/68 06/02/2020 12:51 PM CDT Pulse 92 06/02/2020 12:51 PM CDT Temperature 36.6 C (97.8 F) 06/02/2020 12:51 PM CDT Respiratory Rate 18 06/02/2020 12:51 PM CDT Oxygen Saturation 95% 06/02/2020 12:51 PM CDT Inhaled Oxygen Concentration - - Weight 64 kg (141 lb) 06/02/2020 12:51 PM CDT Height 157.5 cm (5' 2) 06/02/2020 12:51 PM CDT Body Mass Index 25.79 06/02/2020 12:51 PM CDT Plan of Treatment Health Maintenance Due Date Last Done Comments Hepatitis C Virus (HCV) Screening 1935 TdaP Immunization 1935 Zoster Immunization (1 of 2) 1986 Respiratory Syncytial Virus (RSV) Immunization (Adult) (1 - 1-dose 75+ series) 11/18/2011 SARS-COV-2 Immunization ( season) 2024 05/19/2021, 10/25/2020, 09/27/2020 Influenza Immunization (#1) 04/20/202505/21, 07/01/2018, 07/09/2017, Additional history exists Pneumococcal Immunization (50+ years) Completed 07/01/2018, 06/02/2015 Pneumococcal Immunization Combined Discontinued 07/01/2018, 06/02/2015 Hepatitis B Immunization Aged Out No longer eligible based on patient's age to complete this topic Human Papillomavirus (HPV) Immunization Aged Out No longer eligible based on patient's age to complete this topic Meningococcal Immunization (ACWY) Aged Out No longer eligible based on patient's age to complete this topic Rotavirus Immunization Aged Out No lo nger eligible based on patient's age to [place] [address] MEDICARE [facility] Care Teams Milliner Helper Relationship Specialty Start Date End Date Josh Cohen MD [address] [place] [address] PCP - General Family Medicine 12/04/16
--- OUTSIDE RECORDS SUMMARY | 2025-04-06 17:13 | XMS_ITS | Clinical Summary ---
Author Organization [facility] Address [address] [place] [id number] Phone Care Team Providers Care Highway Engineer Name Role Phone Josh Cohen MD Primary Care Provider [phone] Allergies Active Allergy Reactions Criticality Noted Date Comments Albuterol 04/01/2019 Other reaction(s): Other (see Comments) Causes patient to pass out Budesonide-Formoterol Fumarate 04/01/2019 Other reaction(s): Unknown Erythromycin Base Rash Medium 02/15/2016 Fluticasone-Salmeterol 04/01/2019 Other reaction(s): Other (see Comments) hoarseness Hydrocodone-Acetaminophen Itching Low 02/03/2019 Other reaction(s): Other (see Comments) Skin rash/hives Latex Low 04/01/2019 Other reaction(s): Other (See comments) Skin rash/hives Skin rash/hives Propranolol Low 02/03/2019 Other reaction(s): Other (See comments) Bad dreams Bad dreams Quinolones 04/01/2019 Sulfa Antibiotics 04/01/2019 Tiotropium 04/01/2019 Other reaction(s): Unknown Tramadol 04/01/2019 Other reaction(s): Other (see Comments) dizziness Hydrocod Jeremiah-Chlorphe Jeremiah Er Itching Low 02/03/2019 Other reaction(s): Vomiting Yellow Dye Rash Medium 04/11/2012 Medications omega-3 (FISH OIL) 1000 MG capsule 1 daily 0 8 Active Hypromellose (GENTEAL MILD TO MODERATE) 0.3 % solution as dir 0 8 Active azelastine (ASTELIN) 0.1 % nasal spray as dir 0 8 Active pravastatin (PRAVACHOL) 20 MG tablet 1 daily 0 8 Active Multiple Vitamin (MULTIVITAMIN) capsule 1 daily 0 8 Active guaiFENesin (MUCINEX) 600 MG 12 hr tablet prn 0 8 Active Magnesium Chloride (MAG64) 64 MG tablet delayed-release 1 daily 0 8 Active nystatin (MYCOSTATIN) cream 5cc s&s as dir 0 8 Active montelukast (SINGULAIR) 10 MG tablet 1 daily 0 8 Active loperamide (IMODIUM A-D) 2 MG tablet 1 as dir 0 8 Active Probiotic capsule 1 dialy 0 8 Active calcium carbonate-vitam in D (CALCIUM HIGH POTENCY/VITAMIN D) 600-200 MG-UNIT per tablet Take 1 tablet by mouth 2 times daily Active dicyclomine (BENTYL) 20 MG tablet TAKE 1 TABLET BY MOUTH 4 TIMES DAILY 9 Active famotidine (PEPCID) 20 MG tablet Take 20 mg by mouth 2 (two) times a day 0 Active fluticasone (FLONASE) 50 MCG/ACT nasal spray Administer 2 sprays into affected nostril(s) 4 Active Probiotic Product (ZolkC) capsule Take by mouth daily Active hydroxychloroqu ine (PLAQUENIL) 200 MG tablet Take 200 mg by mouth 1 (one) time each day 0 Active biotin 5 MG capsule capsule Take 5 mg by mouth Active terbinafine (LamISIL) 250 MG tablet 2 Active hydroCHLOROthia zide (HYDRODIURIL) 25 MG tablet Take 1 tablet (25 mg total) by mouth 1 (one) time each day 30 tablet 11 2 Active terazosin (HYTRIN) 2 MG capsule Take 1 capsule (2 mg total) by mouth in the morning and 1 capsule (2 mg total) in the evening. 60 capsule 11 2 Active Active Problems Problem Noted Date Diagnosed Date Arthritis 09/04/2019 Overview (07/02/2020): Labs (04/23/2020): SCr (1.53) AVISE (04/23/2020): negative Hepatitis negative: 04/2020 TB Quant negative: 04/2020 X-rays (04/27/2020): Rt hand: mod 1st CMC and mild IP OA Lt hand: mod 1st CMC and 3rd DIP OA, mild/mod 2nd DIP OA L-spine: DDD L2-5, scoliosis? SI joints: negative Rt hip: mild OA CXR: negative US right hand/wrist (08/25/19): Mild effusions and power doppler on examination which will have to be correlated clinically. Marked synovial thickening in the 2nd PIP joint. Moderate synovial thickening in the 3rd MCP and 3rd PIP joints. Grade 1 effusion and grade 2 power doppler in the wrist and radial/scaphoid joint. Grade 1 effusion and grade 1 power doppler in the 4th MCP joint. Grade 1 power doppler in the 2nd MCP joint and 2nd PIP joint. Grade 1 effusion in the 3rd MCP joint. US right hand/wrist (04/29/20): Mild/moderate effusions and power doppler on examination which will have to be correlated clinically. Marked synovial thickening in the 3rd MCP and 2nd PIP joint. Moderate synovial thickening in the 3rd PIP joint. Suspicion for erosive changes in the 5th metacarpal head. Grade 2 effusion and grade 1 power doppler in the 2nd PIP joint. Grade 2 power doppler in the wrist. Grade 1 effusion in the 2nd and 3rd MCP joints. Grade 1 power doppler in the radial/scaphoid and 4th MCP joint. Last Assessment & Plan: US right hand/wrist (04/29/20): Mild/moderate effusions and power doppler on examination which will have to be correlated clinically. Marked synovial thickening in the 3rd MCP and 2nd PIP joint. Moderate synovial thickening in the 3rd PIP joint. Suspicion for erosive changes in the 5th metacarpal head. Grade 2 effusion and grade 1 power doppler in the 2nd PIP joint. Grade 2 power doppler in the wrist. Grade 1 effusion in the 2nd and 3rd MCP joints. Grade 1 power doppler in the radial/scaphoid and 4th MCP joint. Serologies revealed an elevated serum creatinine (1.52). AVISE was unremarkable for any autoantibodies. 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 Synovitis with minimal tenderness noted on peripheral exam today. Biggest complaint remains right hip pain which is likely due to OA and not recurrence of PMR based on unremarkable serologies and xray showing right hip OA. 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 Will start HCQ 200mg daily. Risks of retinal toxicity were discussed with the patient. They are aware that they should get at least yearly eye exams, unless otherwise specified. Could potentially increase to 300mg daily in the future which is weight based. Patient given informational handout about HCQ. Follow up in 2 months. Sooner if needed. Stage 3b chronic kidney disease 01/21/2018 Acute kidney failure 01/21/2018 Essential (primary) hypertension 01/21/2018 Hyperlipidemia 01/21/2018 Polymyalgia rheumatica 08/07/2017 Overview (07/02/2020): Had proximal upper/lower extremity pain and stiffness; ESR 43 and CRP 6.0 mg/dL from 06/13/17. Symptoms resolved with prednisone 20 mg daily Xray C-spine revealed moderate spondylosis Xray left hip was unremarkable. US right hand/wrist (08/25/19): Mild effusions and power doppler on examination which will have to be correlated clinically. Marked synovial thickening in the 2nd PIP joint. Moderate synovial thickening in the 3rd MCP and 3rd PIP joints. Grade 1 effusion and grade 2 power doppler in the wrist and radial/scaphoid joint. Grade 1 effusion and grade 1 power doppler in the 4th MCP joint. Grade 1 power doppler in the 2nd MCP joint and 2nd PIP joint. Grade 1 effusion in the 3rd MCP joint. US right hand/wrist (04/29/20): Mild/moderate effusions and power doppler on examination which will have to be correlated clinically. Marked synovial thickening in the 3rd MCP and 2nd PIP joint. Moderate synovial thickening in the 3rd PIP joint. Suspicion for erosive changes in the 5th metacarpal head. Grade 2 effusion and grade 1 power doppler in the 2nd PIP joint. Grade 2 power doppler in the wrist. Grade 1 effusion in the 2nd and 3rd MCP joints. Grade 1 power doppler in the radial/scaphoid and 4th MCP joint. Last Assessment & Plan: Has been off prednisone since 05/2019. Noted acute on set of right internal hip pain 2 weeks ago and has difficulty getting from a seated position due to pain. Pain improves with walking and while sitting but doesn't completely resolve. 5/5 strength on exam with no reproducible pain so less likely reoccurrence of PMR however will repeat serologies to further evaluate. Gastroesophageal reflux disease 03/21/2012 Overview (10/02/2019): Increase pantoprazole to twice a day. Gastric emptying study Increase pantoprazole to twice a day. Gastric emptying study Immunizations Immunization Administration Dates Next Due Fluzone High-Dose 06/17/2020 Influenza TIV (IM) 05/27/2021,06/10/2019, 012 Pneumococcal Conjugate 13-Valent 06/20/2018 Tdap 11/23/2011 Zoster 12/02/2011 Family History Medical History Relation Comments Kidney disease Neg Hx Social History Tobacco Use Types Packs/Day Years Used Date Smoking Tobacco: Never Smokeless Tobacco: Never Alcohol Use Standard Drinks/Week Comments Not Currently 0 (1 standard drink = 0.6 oz pur e alcohol) Comments Unknown Sex and Gender Information Value Date Recorded Sex Assigned at Not on file Legal Sex Female 7:36 AM [facility] Gender Identity Not on file Sexual Orientation Not on file Last Filed Vital Signs Vital Sign Reading Time Taken Comments Blood Pressure 142/70 05/08/2022 10:25 AM CDT Pulse 72 05/08/2022 10:25 AM CDT Temperature 37.1 C (98.7 F) 05/08/2022 10:25 AM CDT Respiratory Rate - - Oxygen Saturation - - Inhaled Oxygen Concentration - - Weight 63 kg (139 lb) 05/08/2022 10:25 AM CDT Height 157.5 cm (5' 2) 05/08/2022 10:25 AM CDT Body Mass Index 25.42 05/08/2022 10:25 AM CDT Plan of Treatment Health Maintenance Due Date Last Done Comments Pneumococcal PPSV23/PCV13 65 + Years / Low and Medium Risk (2 of 3 - PCV20 or PCV21) 06/20/2019 06/20/2018 Influenza Vaccine (#1) 2025 , 06/10/2019, 05/25/2012 Insurance MEDICARE [facility] Care Teams Highway Engineer Relationship Specialty Start Date End Date Josh Cohen MD [address] [facility] [address] [place] [address] PCP - General Internal Medicine 04/01/19
--- OUTSIDE RECORDS SUMMARY | 2025-04-06 17:13 | XMS_ITS | Clinical Summary ---
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 Name Role Phone Josh Cohen MD Primary Care Provider Mohan Vargas MD Unavailable Rene Hermosillo MD Unavailable Giacomo King MD Unavailable [phone] Allergies Active Allergy Reactions Criticality Noted Date Comments Adhesive Tape-Silicones Hydrocodone-Acetaminophe n Itching Low 02/03/2019 Propranolol Other (See comments) Low 02/03/2019 Bad dreams Latex Other (See comments) Low Skin rash/hives Levofloxacin Other (See comments) Low 02/03/2019 Tendon problems Budesonide Other (See comments) Low 02/03/2019 Thrush in throat Sulfa (Sulfonamide Antibiotics) Sulfanilamide Tussionex Itching,Vomiting Low 02/03/2019 Medications dicyclomine (BENTYL) 20 mg tabletIndicatio ns:Irritable Bowel Syndrome Take 1 tablet (20 mg total) by mouth May take up to 4 tablets a day 04/05/2016 Active pravastatin (PRAVACHOL) 20 mg tablet 09/27/2017 Active montelukast (SINGULAIR) 10 mg tablet Take 1 tablet (10 mg total) by mouth nightly Active calcium carbonate-vitam in D3 1500 mg (600 mg elemental) -200 units per tablet Take 1 tablet by mouth 2 (two) times a day Active omega-3 fatty acids-fish oil 300-1,000 mg capsule Take 2 capsules (2 g total) by mouth 2 (two) times a day Active famotidine (PEPCID) 20 mg tablet Take 1 tablet (20 mg total) by mouth 2 (two) times a day 10/13/2022 Active azelastine (ASTELIN) 137 mcg (0.1 %) nasal spray USE 2 SPRAY(S) IN EACH NOSTRIL EVERY 12 HOURS 10/13/2022 Active amLODIPine (NORVASC) 2.5 mg tablet Take 1 tablet (2.5 mg total) by mouth daily 02/16/2023 Active oxyBUTYnin XL (DITROPAN-XL) 5 mg 24 hr tablet 04/23/2024 Act shelley chlorthalidone (HYGROTON) 25 mg tablet 10/07/2024 Active amLODIPine (NORVASC) 5 mg tablet Take 1 tablet (5 mg total) by mouth every morning 09/06/2024 Active biotin 5 mg capsule 1 capsule (1 tablet total) Active hydroxychloroqu ine (PLAQUENIL) 200 mg tablet TAKE 1 & 1/2 (ONE & ONE-HALF) TABLETS BY MOUTH ONCE DAILY 135 tablet 02/16/2025 Active Active Problems Problem Noted Date Diagnosed Date Acute pain of both knees 11/14/2024 Assessment & Plan (11/14/2024 10:14 AM CDT): Hx bilateral TKA. Recent onset of bilateral knee pain at night while resting. Lasts up to 1 hour before self-resolving. Recommend heat, massage, topical Voltaren, and tylenol PRN. Chronic bilateral low back pain with right-sided sciatica 05/07/2023 Assessment & Plan (05/07/2023 11:55 AM CDT): Ongoing x4 weeks. MRI L-spine (04/26/23) per PCP done at [facility] showed facet arthropathy, DDD, and neural foraminal stenosis at several levels. No central spinal canal stenosis. Recommend continuing HEP, alternative ice/heat, and tylenol arthritis 2 tabs BID. Given medrol pack on 04/12 with some relief but pain not fully resolved. If pain is not improving with conservative treatment, discussed f/u with PCP to discuss formal PT vs referral to pain management. 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 Assessment & Plan (11/06/2023 10:21 AM CDT): Advised to get routine annual eye exams while on HCQ to monitor for retinal toxicity. Assessment & Plan (05/07/2023 11:51 AM CDT): Advised to get routine annual eye exams while on HCQ to monitor for retinal toxicity. Assessment & Plan (10/31/2022 10:07 AM CDT): Advised to get routine annual eye exams while on HCQ to monitor for retinal toxicity. Assessment & Plan (05/08/2022 3:10 PM CDT): Advised to get routine annual eye exams while on HCQ to monitor for retinal toxicity. Primary osteoarthritis of both hands 11/05/2020 Overview (11/05/2020): X-rays (04/27/2020): Rt hand: mod 1st CMC and mild IP OA Lt hand: mod 1st CMC and 3rd DIP OA, mild/mod 2nd DIP OA Assessment & Plan (11/14/2024 10:00 AM CDT): Osteoarthritis in the bilateral hands noted on previous x-rays. Previously reported pain in the DIP joints which is likely degenerative. Avoiding NSAIDs due to CKD. Takes tylenol prn. Continue Voltaren gel otc prn pain. Assessment & Plan (05/08/2024 10:27 AM CDT): Osteoarthritis in the bilateral hands noted on previous x-rays. Previously reported pain in the DIP joints which is likely degenerative. Avoiding NSAIDs due to CKD. Takes tylenol prn. Continue Voltaren gel otc prn pain. Assessment & Plan (11/06/2023 10:21 AM CDT): Osteoarthritis in the bilateral hands noted on previous x-rays. Previously reported pain in the DIP joints which is likely degenerative. Avoiding NSAIDs due to CKD. Takes tylenol prn. Continue Voltaren gel otc prn pain. Assessment & Plan (05/07/2023 11:48 AM CDT): Osteoarthritis in the bilateral hands noted on previous x-rays. Previously reported pain in the DIP joints which is likely degenerative. Avoiding NSAIDs due to CKD. Takes tylenol prn. Continue Voltaren gel otc prn pain. Assessment & Plan (10/31/2022 10:07 AM CDT): Osteoarthritis in the bilateral hands noted on previous x-rays. Previously reported pain in the DIP joints which is likely degenerative. Avoiding NSAIDs due to CKD. Takes tylenol prn. Continue Voltaren gel otc prn pain. Assessment & Plan (05/08/2022 3:08 PM CDT): Osteoarthritis in the bilateral hands noted on previous x-rays. Reports pain in the DIP joints which is likely degenerative. Avoiding NSAIDs due to CKD. Takes tylenol prn. Continue Voltaren gel otc prn pain. Assessment & Plan (11/08/2021 12:06 PM CDT): Osteoarthritis in the bilateral hands noted on previous x-rays. Reports pain in the DIP joints which is likely degenerative. Avoiding NSAIDs due to CKD. Takes tylenol prn. Continue Voltaren gel otc prn pain. Assessment & Plan (05/10/2021 10:08 AM CDT): Osteoarthritis in the bilateral hands noted on previous x-rays. Reports pain in the DIP joints which is likely degenerative. Avoiding NSAIDs due to CKD. Takes tylenol prn. Continue Voltaren gel otc prn pain. Assessment & Plan (11/05/2020 11:00 AM CDT): Osteoarthritis in the bilateral hands noted on previous x-rays. Reports pain in the DIP joints which is likely degenerative. Avoiding NSAIDs due to CKD. Takes tylenol prn. Recommend Voltaren gel otc prn pain. Osteoarthritis of right hip 05/07/2020 Assessment & Plan (11/05/2020 10:55 AM CDT): Radiating right leg pain improved with PT. Assessment & Plan (07/09/2020 11:51 AM HYBRID TESTER): Recent x-ray of right hip revealed mild OA. Patient reports pain in right hip that can radiate into her right knee. Pain worse when going up stairs and getting from a seated position. Takes tylenol prn but takes this sparingly. Avoiding NSAIDs due to CKD. Had corticosteroid injection into the right hip per ortho without much benefit. Ortho feels pain is referred from her spine. Seeing pain management who is starting PT for lumbar radiculopathy. Assessment & Plan (05/07/2020 11:02 AM CDT): Recent x-ray of right hip revealed mild OA. Patient reports pain in right hip that can radiate into her right knee. Pain worse when going up stairs and getting from a seated position. Takes tylenol prn but takes this sparingly. Avoiding NSAIDs due to CKD. Will give referral to PT. If no benefit with PT then will consider evaluation by ortho. Inflammatory arthritis 09/04/2019 Overview (05/04/2020): Labs (04/23/2020): SCr (1.53) AVISE (04/23/2020): negative [...] in the radial/scaphoid and 4th MCP joint. Assessment & Plan (11/14/2024 10:02 AM CDT): Low cdai. Initially diagnosed with PMR and tapered off prednisone in 2019 with recurrence of only peripheral pain complaints. Subsequent evaluation with hand US revealed possible 5th MCP erosion along with effusion and power doppler in the PIP joints suggestive of a inflammatory arthritis so was started on HCQ 300mg daily with improvement of peripheral joint synovitis and tenderness. -Continue HCQ 300 mg daily (weight based). -Unable to take NSAIDs due to CKD and reports she was told to avoid excess tylenol as well. -Routine labs today. -Follow up in 6 months. Sooner if needed. Assessment & Plan (05/08/2024 10:27 AM CDT): Low cdai. Initially diagnosed with PMR and tapered off prednisone in 2019 with recurrence of only peripheral pain complaints. Subsequent evaluation with hand US revealed possible 5th MCP erosion along with effusion and power doppler in the PIP joints suggestive of a inflammatory arthritis so was started on HCQ 300mg daily with improvement of peripheral joint synovitis and tenderness. Will continue HCQ 300 mg daily (weight based). Unable to take NSAIDs due to CKD and reports she was told to avoid excess tylenol as well. Routine labs today. Follow up in 6 months. Sooner if needed. Assessment & Plan (11/06/2023 10:39 AM CDT): Low cdai. Initially diagnosed with PMR and tapered off prednisone in 2019 with recurrence of only peripheral pain complaints. Subsequent evaluation with hand US revealed possible 5th MCP erosion along with effusion and power doppler in the PIP joints suggestive of a inflammatory arthritis so was started on HCQ 300mg daily with improvement of peripheral joint synovitis and tenderness. Will continue HCQ 300 mg daily (weight based). Unable to take NSAIDs due to CKD and reports she was told to avoid excess tylenol as well. Routine labs today. Follow up in 6 months. Sooner if needed. Assessment & Plan (05/07/2023 11:51 AM CDT): Low cdai. No obvious synovitis or tenderness in the bilateral hands on exam. C/o AM stiffness worse since injury to R hand in 07/2021. Other than AM joint stiffness in the R hand, she feels she is doing well overall and defers changes to her treatment. Should she develop pain or worsening dexterity, then may reconsider further evaluation and treatment for an inflammatory arthritis. Will continue HCQ 300 mg daily (weight based). Unable to take NSAIDs due to CKD and reports she was told to avoid excess tylenol as well. Routine labs today. Follow up in 6 months. Sooner if needed. Assessment & Plan (10/31/2022 10:06 AM CDT): Low cdai. Some synovitis without tenderness noted mainly in the right MCP joints and c/o AM stiffness worse since injury to R hand in 07/2021. Other than AM joint stiffness in the R hand, she feels she is doing well overall and defers changes to her treatment. Should she develop pain or worsening dexterity, then may reconsider further evaluation and treatment for an inflammatory arthritis. Will give squeeze ball. Will continue HCQ 300 mg daily (weight based). Unable to take NSAIDs due to CKD and reports she was told to avoid excess tylenol as well. Recent labs reviewed with patient. Will give order for CBC, CMP to be done with future labs. Follow up in 6 months. Sooner if needed. Assessment & Plan (05/08/2022 3:08 PM CDT): Low cdai. Some synovitis without tenderness noted mainly in the right MCP joints and c/o AM stiffness worse since injury to R hand in 07/2021. Offered repeat hand US to evaluate for inflammation however patient defers as it is difficult for her to travel from [place] to [place]. Other than AM joint stiffness in the R hand, she feels she is doing well overall and defers changes to her treatment. Should she develop pain or worsening dexterity, then may reconsider further evaluation and treatment for an inflammatory arthritis. Will continue HCQ 300 mg daily (weight based). Has done PT with improvement. Unable to take NSAIDs due to CKD and reports she was told to avoid excess tylenol as well. Recent labs reviewed with patient. Follow up in 4-6 months. Sooner if needed. Assessment & Plan (11/08/2021 12:06 PM CDT): Moderate cdai. Increased swelling with minor tenderness noted mainly in the right MCP joints and c/o AM stiffness and swelling worse since injury to R hand in 07/2021. Offered repeat hand US to evaluate for inflammation however patient defers as it is difficult for her to travel from [place] to [place] and unfortunately US schedule is full today so would not be able to have this done today at the office. Will increase HCQ 300 mg daily based on increased inflammation in the right MCP joints and AM stiffness. Has done PT with improvement. Unable to take NSAIDs due to CKD and reports she was told to avoid excess tylenol as well. If no significant relief with HCQ, then discussed possibly seeing hand ortho for further evaluation. Recent labs reviewed with patient. Follow up in 4-6 months. Sooner if needed. Assessment & Plan (05/10/2021 10:09 AM CDT): Low cdai. Few swollen and tender joints. Symptoms remains stable overall with current treatment. Continue HCQ 200mg daily. Patient defers increasing to weight based dosing (300mg daily) at this time. Routine labs today. Follow up in 6 months. Sooner if needed. Assessment & Plan (11/05/2020 12:59 PM CDT): Low cdai. Few swollen joints with tenderness primarily in the DIP joints noted on peripheral exam today. Denies much improvement of pain with addition of HCQ however pain in DIP joints is likely degenerative. Tolerating medication w/o side effects. Continue HCQ 200mg daily. Patient defers increasing to weight based dosing (300mg daily) at this time. Routine labs today. Follow up in 6 months. Sooner if needed. Seen with Dr. Hermosillo. Assessment & Plan (07/09/2020 11:53 AM HYBRID TESTER): Low cdai. Few swollen joints with minimal tenderness noted on peripheral exam today. Notes some improvement of morning stiffness since starting HCQ. Tolerating medication w/o side effects. Still has occasional pain in the left 3rd DIP joint. Continue HCQ 200mg daily and give it more time to take effect. Patient defers increasing to weight based dosing (300mg daily) at this time. Recent labs reviewed and are stable. Follow up in 3-4 months. Sooner if needed. Assessment & Plan (05/07/2020 11:04 AM CDT): US right hand/wrist (04/29/20): Mild/moderate effusions and [...] up in 2 months. Sooner if needed. Assessment & Plan (04/23/2020 12:30 PM CDT): Several swollen and tender joints noted on peripheral exam today. Past right hand/wrist US (08/2019) showed inflammatory findings consistent with an inflammatory arthritis however patient deferred treatment at that time. Biggest complaint today is 2 weeks of right internal hip pain worse when first getting up. Patient has good strength on exam without any reproducible pain so recurrence of PMR is unlikely. Symptoms and exam are suspicious for inflammatory arthritis vs degeneartive arthritis. Will order appropriate serologies, radiographs, and a right hand/wrist US to further evaluate. Depending on x-ray of right hip, could consider PT in the future. Follow up in 2 weeks. Sooner if needed. Seen with Dr. Hermosillo. Assessment & Plan (09/04/2019 12:24 PM HYBRID TESTER): US right hand/wrist (08/25/19): Mild effusions and [...] 1 effusion in the 3rd MCP joint. Serologies were unremarkable. Continues to notice pain and stiffness in her hands especially in the mornings which improves with activity. Discussed that US findings are suspicious for an inflammatory arthritis, however patient feels symptoms may be related to OA and tapering off prednisone. Discussed treatment with HCQ, however patient feels pain is tolerable and would like to wait before initiating any treatment. Will continue to observe for any progression. Follow up in 3 months. Sooner if needed. Multinodular goiter (nontoxic) 03/17/2019 Assessment & Plan (02/12/2023 10:24 AM CDT): Status post right thyroidectomy 1997 Multiple thyroid nodules in left thyroid lobe and Isthmus Multiple FNA biopsies showed benign follicular nodule performed A thyroid ultrasound in office today - see full report No obvious compressive symptoms Recheck TSH Follow up on as needed basis Assessment & Plan (05/24/2021 2:12 PM CDT): Status post right thyroidectomy 1997 Multiple thyroid nodules in left thyroid lobe and Isthmus Multiple FNA biopsies showed benign follicular nodule performed A thyroid ultrasound in office today - see full report No compressive symptoms Recheck TSH Stable left thyroid nodules follow up one year Assessment & Plan (05/24/2020 2:53 PM CDT): Status post right thyroidectomy 1997 Multiple thyroid nodules in left thyroid lobe and Isthmus Multiple FNA biopsies showed benign follicular nodule performed A thyroid ultrasound in office today - see full report No compressive symptoms Recheck TSH Stable left thyroid nodules follow up one year Assessment & Plan (07/04/2019 10:00 AM HYBRID TESTER): Status post right thyroidectomy 1997 Multiple thyroid nodules in left thyroid lobe and Isthmus Multiple FNA biopsies showed benign follicular nodule performed A thyroid ultrasound in office today - see full report No compressive symptoms Last TSH 01/2019 WNL Stable left thyroid nodules follow up thyroid ultrasound in one year Assessment & Plan (03/17/2019 3:02 PM CDT): Reviewed last thyroid ultrasound report Status post right thyroidectomy 1997 Multiple thyroid nodules in left thyroid lobe and Isthmus Multiple FNA biopsies showed benign follicular nodule No compressive symptoms Last TSH May 2018 within normal limits Recheck thyroid labs Follow-up in 4 months for repeat thyroid ultrasound in office Age-related osteoporosis wit hout current pathological fracture 07/08/2018 Overview (07/08/2018): DEXA (05/2018): Left femoral neck T score -2.5 Assessment & Plan (04/23/2020 12:21 PM CDT): DEXA (05/2018): left femoral neck T score: -2.5. Considering starting Prolia as recommended by pcp, however she is uncertain if she wants to pursue this. Recommend Prolia due to her osteoporosis as well as long-term prednisone use. Encouraged to take calcium and vitamin D to optimize bone health. Assessment & Plan (09/04/2019 12:22 PM HYBRID TESTER): DEXA (05/2018): left femoral neck T score: -2.5. Considering starting Prolia as recommended by pcp, however she is uncertain if she wants to pursue this. Recommend Prolia due to her osteoporosis as well as long-term prednisone use. Encouraged to take calcium and vitamin D to optimize bone health. Assessment & Plan (05/29/2019 10:45 AM CDT): DEXA (05/2018): left femoral neck T score: -2.5. Considering starting Prolia as recommended by pcp, however she is uncertain if she wants to pursue this. Recommend Prolia due to her osteoporosis as well as long-term prednisone use. Encouraged to take calcium and vitamin D to optimize bone health. Assessment & Plan (02/28/2019 11:08 AM CDT): DEXA (05/2018): left femoral neck T score: -2.5. Considering starting Prolia as recommended by pcp, however she is uncertain if she wants to pursue this. Recommend Prolia due to her osteoporosis as well as long-term prednisone use. Encouraged to take calcium and vitamin D to optimize bone health. Assessment & Plan (01/10/2019 12:12 PM CDT): DEXA (05/2018): left femoral neck T score: -2.5. Considering starting Prolia as recommended by pcp, however she is uncertain if she wants to pursue this. Recommend Prolia due to her osteoporosis as well as long-term prednisone use. Encouraged to take calcium and vitamin D to optimize bone health. Assessment & Plan (10/14/2018 11:57 AM HYBRID TESTER): DEXA (05/2018): left femoral neck T score: -2.5. Considering starting Prolia as recommended by pcp, however she is uncertain if she wants to pursue this. Recommend Prolia due to her osteoporosis as well as long-term prednisone use. Encouraged to take calcium and vitamin D to optimize bone health. Assessment & Plan (07/08/2018 10:50 AM HYBRID TESTER): This is based on a DEXA bone density last month revealing a left femoral neck T- score of -2.5. She is considering starting Prolia as recommended by her primary physician although she is uncertain if she wants to pursue this. I did recommend Prolia as well due to her osteoporosis as well as her long-term prednisone usage. She reports she will consider this. She was encouraged to take calcium plus vitamin D to optimize her bone health. Right arm pain 05/02/2018 Assessment & Plan (05/02/2018 11:42 AM CDT): She has a nontender bulge in the right bicep suspicious for a biceps tendon rupture. She does have occasional discomfort and hardening of the area although no great pain. Will follow clinically and if this becomes more symptomatic she may benefit from ortho referral. Chronic right shoulder pain 02/07/2018 Overview (02/07/2018): S/p right rotator cuff repair 2016 Follows with ortho, corticosteroid injection no benefit doing PT Assessment & Plan (05/02/2018 11:41 AM CDT): This is improved. She does follow with ortho and corticosteroid injections do give her short-term benefit. I do not believe that her right shoulder pain is due to her polymyalgia rheumatica and I suspect this likely is a rotator cuff tendinopathy versus degenerative arthritis. Assessment & Plan (02/07/2018 10:58 AM CDT): She is status post rotator cuff repair last year which had done well although over the last several months she has had quite a bit of pain in the right shoulder. She did see orthopedic surgery who did a recent corticosteroid injection into the right shoulder with no benefit. She has been doing physical therapy for the last 2 weeks with some mild benefit. At this time I suspect her symptoms are from osteoarthritis and possibly a rotator issue and do not feel it is from her PMR. She is encouraged to continue the physical therapy and follow up with orthopedic surgery. Polymyalgia rheumatica 08/07/2017 Overview (04/29/2020): Had proximal upper/lower extremity pain and stiffness; [...] in the radial/scaphoid and 4th MCP joint. Assessment & Plan (04/23/2020 12:25 PM CDT): Has been off prednisone since 05/2019. Noted acute on set of right internal hip pain 2 weeks ago and has difficulty getting from a seated position due to pain. Pain improves with walking and while sitting but doesn't completely resolve. 5/5 strength on exam with no reproducible pain so less likely reoccurrence of PMR however will repeat serologies to further evaluate. Assessment & Plan (09/04/2019 12:19 PM HYBRID TESTER): Tapered off prednisone a few months ago and denies any recurrence of symptoms. Assessment & Plan (05/29/2019 12:22 PM CDT): Currently on prednisone 1mg daily without recurrence of symptoms. Does have intermittent pain in her right hip but has good strength on exam and no reproducible pain. Does note some morning stiffness and joint pain for the past 2 weeks, however minimal synovitis without tenderness noted on exam. Will order appropriate serologies, radiographs, and a hand/wrist US to further evaluate for any underlying inflammatory arthritis. Continue tapering off prednisone. Follow up in 3 months. Sooner if needed. Seen with Dr. Hermosillo. Assessment & Plan (02/28/2019 11:10 AM CDT): Notes intermittent pains in her right hip, right knee, and mid-back since tapering prednisone. Remains on 4mg daily. No reproducible pain noted on exam with good strength. Unlikely her symptoms are due to recurrence of PMR as it is asymmetric and does not involve the shoulder or pelvic girdles. Reports headaches however not specific to the temporal region and resolves with tylenol. Taking tylenol as needed for intermittent pains with benefit as well. Avoiding NSAIDs as she only has 1 kidney. Continue tapering prednisone by 1mg every 30 days until off. Follow up in 3 months. Sooner if needed. Assessment & Plan (01/10/2019 12:11 PM CDT): Had recurrence of symptoms tapering prednisone to 4mg daily so increased to 5mg with resolve of symptoms. No obvious synovitis or tenderness. No reproducible pain on exam today. Will decrease prednisone by 1mg every month. If difficulty tapering next visit, then will consider a steroid sparing agent such as MTX vs HCQ. Follow up in 6 weeks. Sooner if needed. Assessment & Plan (10/14/2018 12:00 PM HYBRID TESTER): Doing well with essentially no complaints. Currently on prednisone 5mg daily and is tapering by 1mg per month. Reports blurry vision, however was told it was due to dry eye per eye doctor and given eye drops. Notes left temporal region headaches that last about 1 minute and occur about 2 times a month. Denies jaw claudication and is non-tender along the bilateral temporal region. Because the headaches are infrequent and short in duration it is less concerning for temporal arteritis, however will continue to monitor. Continue prednisone 5mg daily and taper by 1mg per month. Consider plaquenil vs methotrexate as steroid sparing agent if difficulty tapering prednisone. Follow up in 3 months. Sooner if needed. Seen with Dr. Hermosillo. Assessment & Plan (07/08/2018 10:47 AM HYBRID TESTER): She was having increased pain in her low back and buttocks after the prednisone was decreased to 5 mg daily. Because of this the dose was increased back to 7.5 mg daily which resolved her pain complaints. She feels well today with minimal complaints. Exam findings are minimal today. Will decrease her prednisone to 7 mg daily and continue this for 1 month and continue to decrease by 1 mg every month until she is off. If she has a difficult time tapering the prednisone will consider a steroid sparing agent such as methotrexate versus hydroxychloroquine. Follow-up in 3 months. Assessment & Plan (05/02/2018 11:39 AM CDT): This remains stable clinically. She is down to 7.5 mg daily of prednisone and is doing well with this. She has no current pain complaints or tenderness on exam today. She has no evidence temporal arteritis. Will decrease prednisone down to 5 mg daily until her next visit and after that will taper by 1 mg every month. Follow-up in 2 months. Assessment & Plan (02/07/2018 10:55 AM CDT): She continues to do well with no evidence of active symptoms. She is having right shoulder pain which I do not suspect is from her polymyalgia rheumatica. She has no significant tenderness on exam and strength is intact. Will decrease prednisone down to 7.5 mg daily which she is to continue until her next visit. Will have her follow-up in 3 months and hope to continue the prednisone taper at that time. Assessment & Plan (12/10/2017 12:10 PM CDT): Symptoms appear stable clinically. Has intermittent pain in proximal upper extremities although this comes and goes and is not daily so less likely from PMR. 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 Has no tenderness on exam today. Decrease prednisone to 10 mg daily until next visit. f/u 2 months and will hope to further prednisone at that time. Assessment & Plan (10/30/2017 4:46 PM CDT): Had decreased prednisone to 10 mg daily and had increased pain in arms and legs. Pt went back up to 12.5 mg daily and symptoms resolved. Currently ill with bronchitis which has lingered for a few weeks and pt not feeling great from that although overall has no pain complaints. Will cont prednisone 12.5 mg daily for now and give it more time. Will attempt to taper dose to 10 mg next visit. If unable to do so will consider HCQ vs MTX as a steroid sparing agent. Cont Ca+D while on prednisone. F/u 6 weeks. Assessment & Plan (09/07/2017 11:59 AM HYBRID TESTER): Continues to do well with minimal complaints on prednisone 15 mg daily. Has no current pain and no tenderness on exam. Is having adverse effects with prednisone with feeling jittery at all times and constant hunger. Also with oral thrush and is on nystatin swish and swallow. Pt informed these should resolve as the dose is decreased. Will decrease prednisone to 12.5 mg daily for 2 weeks then to 10 mg daily until next visit. F/u 6 weeks. Assessment & Plan (08/07/2017 2:42 PM HYBRID TESTER): Feels well today with minimal complaints. Is currently on prednisone 15 mg daily. Has no pain complaints or tenderness on exam. Will cont prednisone 15 mg daily for now and will further taper next visit. F/u 4 weeks. Degenerative disc disease, cervical 08/07/2017 Overview (08/07/2017): Xray C-spine revealed moderate spondylosis Neck pain with radiation up into occipital area Has only 1 kidney so careful with nsaids Assessment & Plan (02/07/2018 10:56 AM CDT): X-ray of her cervical spine reveals moderate spondylosis. She does have intermittent neck pain although symptoms are stable. She is not requiring any analgesics. Assessment & Plan (12/10/2017 10:34 AM CDT): Has intermittent neck pain and pain down arms. Has no tenderness on exam today. If symptoms progress will consider PT. Cont tylenol prn. Assessment & Plan (10/30/2017 4:47 PM CDT): Symptoms stable with minimal complaints. Cont tylenol prn. Assessment & Plan (09/07/2017 11:58 AM HYBRID TESTER): This continues to do well with minimal complaints. Has tylenol although is not using often. Symptoms stable. Assessment & Plan (08/07/2017 2:44 PM HYBRID TESTER): I suspect this has caused some degree of her pain. Symptoms stable currently with minimal complaints. If symptoms progress will consider MRI vs referral to pain management for interventional injections vs PT. Polyp of colon 01/30/2017 Gastroesophageal reflux disease 01/30/2017 Overview (01/30/2017): Overview: Increase pantoprazole to twice a day. 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 Also with left hip/groin pain at that time. Symptoms started abruptly. Had difficult time turning her neck or getting up from sitted position due to pain. Labs revealed elevated ESR 43 and CRP 6.0 mg/dL from 06/13/17. Symptoms resolved with prednisone 20 mg daily but not 15 mg daily Xray C-spine revealed moderate spondylosis Xray left hip was unremarkable. Assessment & Plan (07/19/2017 2:05 PM HYBRID TESTER): Has had pain in neck with radiation up into occipital area since Mar. Also with left hip/groin pain at that time. Symptoms started abruptly. Had difficult time turning her neck or getting up from sitted position due to pain. Labs revealed elevated ESR 43 and CRP 6.0 mg/dL from 06/13/17. Pt started on prednisone 20 mg daily. Had been on 15 mg prednisone with only slight benefit. Has no proximal upper/lower extremity pain or stiffness. Has no shoulder/pelvic girdle pain or stiffness. I am uncertain if truly PMR based on no great response to prednisone 15 mg daily and her distribution of pain complaints although this remains possible. May have some degenerative changes causing some of her symptoms. Is noted had xray C-spine which revealed moderate spondylosis and xray left hip was unremarkable. Has occasional mild frontal headaches although no significant temporal pain or visual changes. Feels well with essentially no complaints today on prednisone 20 mg daily. Will decrease prednisone to 15 mg daily. Pt to take Ca+D to optimize bone health while on prednisone. If pt has difficult time on prednisone 15 mg daily will proceed with MRI C-spine. Labs as below. F/u 2 weeks. Surgical History Surgery Date Site/Laterality Comments KNEE ARTHROPLASTY Knee replacement KNEE SURGERY Knee surgery APPENDECTOMY KIDNEY STONE SURGERY KIDNEY SURGERY Right removed URETER SURGERY Right CYST REMOVAL DILATION AND CURETTAGE OF UTERUS THYROIDECTOMY, PARTIAL Right BLADDER REPAIR BASAL CELL CARCINOMA EXCISION Right eyebrow CARPAL TUNNEL RELEASE Bilateral BASAL CELL CARCINOMA EXCISION Left cheek KNEE SURGERY Left BASAL CELL CARCINOMA EXCISION under left side of chin and right cheek BASAL CELL CARCINOMA EXCISION mouth BASAL CELL CARCINOMA EXCISION Right side of nose OTHER SURGICAL HISTORY partial kate fundoplication ROTATOR CUFF REPAIR and partial remocval of collar bone Medical History Medical History Date Comments Rosacea Rosacea Hx Other Medical 1998 hemithyroidecto my Hypertension Hypertension Syncope Hyperlipidemia GERD (gastroesophageal reflux disease) Arthritis Rhinitis Asthma Goiter Diverticulitis Irritable bowel Lactose intolerance Lung nodules Superior semicircular canal dehiscence Kidney disease stage 3 Essential tremor Abnormal glucose Frequent ventricular premature beats Family History Medical History Relation Name Comments COPD Father COPD; Other Father heart; Skin cancer Father Cancer, skin; Asthma Mother Asthma; Breast cancer Mother Cancer, breast ; Mitral valve prolapse Mother Mitral valve prolapse; Skin cancer Mother Cancer, skin; Stroke Mother Relation Name Status Comments Father Mother Social History Tobacco Use Types Packs/Day Years Used Date Smoking Tobacco: Never Smokeless Tobacco: Never Tobacco Cessation:Counseling Given: Not Answered Alcohol Use Standard Drinks/Week Comments No 0 (1 standard drink = 0.6 oz pur e alcohol) PHQ-2 Answer Date Recorded PHQ-2 Total Score (If total score is 3 or more points, staff should administer the PHQ-9) 0 05/23/2021 Comments Unknown Sex and Gender Information Value Date Recorded Sex Assigned at Not on file Legal Sex Female 11:34 PM HYBRID TESTER Gender Identity Female 12/14/2018 11:46 AM CDT Sexual Orientation Straight 12/14/2018 11 :46 AM CDT Obstetrics History Last Filed Vital Signs Vital Sign Reading Time Taken Comments Blood Pressure 128/68 11/24/2024 9:25 AM CDT Pulse 66 11/24/2024 9:25 AM CDT Temperature 37.1 C (98.7 F) 10/16/2023 4:47 PM HYBRID TESTER Respiratory Rate 20 09/29/2023 7:23 PM HYBRID TESTER Oxygen Saturation 97% 11/24/2024 9:25 AM CDT Inhaled Oxygen Concentration - - Weight 60.5 kg (133 lb 6.4 oz) 11/24/2024 9:25 A M CDT Height 157.5 cm (5' 2) 11/24/2024 9:25 AM CDT Body Mass Index 24.4 11/24/2024 9:25 AM CDT Plan of Treatment Health Maintenance Due Date Last Done Comments Fall Risk Assessment 1936 Osteoporosis Screening-Bone Density Scan 1936 Hepatitis B Screening 1954 Well Visit 65+ 2001 Zoster Vaccine (1 of 2) 01/27/2012 12/02/2011 DTaP/Tdap/Td Vaccine (2 - Td or Tdap) 11/22/2021 11/23/2011 Depression Screening 05/23/2022 05/23/2021, 05/24/2020, 06/09/2019, Additional history exists Influenza Vaccine (#1) 2025 , 06/10/2019, 07/01/2018, Additional history exists Pneumococcal vaccine 65+ Completed 018, 06/20/2018, 06/02/2015 Insurance MEDICARE MEDICARE [facility] MEDICARE [facility] MEDICARE SUPPLEMENT Care Teams Drying Tumbler Operator Relationship Specialty Start Date End Date Josh Cohen MD [address] [place] [address] PCP - General 12/20/16 Mohan Vargas MD [address] [place] [address] 12/20/16 Rene Hermosillo MD [address] [place] [address] Rheumatology 06/27/17 Giacomo King MD [address] [facility] [address] [facility] [address] [place] [address] Referring Physician Nephrology 11/08/20
--- OUTSIDE RECORDS SUMMARY | 2025-04-06 17:13 | XMS_ITS | Encounter Summary ---
Author Organization [facility] Address [address] [place] [address] Care Team Providers Care Sheriff Detective Name Role Phone Josh Cohen MD Primary Care Provider Mohan Vargas MD Unavailable [phone] Rene Hermosillo MD Unavailable [phone] Giacomo King MD Unavailable Encounter Details Date Type Department Care Team (Late st Contact Info) Description 01/01/2017 Orders Only [facility] ProviderEvans MD [address] [place] [id number] Social History Tobacco Use Types Packs/Day Years Used Date Smoking Tobacco: Never Alcohol Use Standard Drinks/Week Comments No 0 (1 standard drink = 0.6 oz pur e alcohol) Comments Unknown Sex and Gender Information Value Date Recorded Sex Assigned at Not on file Legal Sex Female 11:34 PM PURCHASING 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 us Historical Provider [facility] PARVIN TALAVERA Final Result documented in this encounter Visit Diagnoses Not on filedocumented in this encounter Additional Health Concerns Infection Onset Date Last Indicated Resolved Time COVID: Suspected 09/29/2023 09/29/2023 09/29/2023 10:45 PM PURCHASING DEPARTMENT CLERK Influenza, adult 09/29/2023 09/29/2023 10/06/2023 3:05 AM PURCHASING DEPARTMENT CLERK documented as of this encounter Care Teams Sheriff Detective Relationship Specialty Start Date End Date Josh Cohen MD [address] [place] [address] PCP - General 12/20/16 Mohan Vargas MD [address] [place] [address] 12/20/16 Rene Hermosillo MD [address] [place] [address] Rheumatology 06/27/17 Giacomo King MD [address] [place] [address] Referring Physician Nephrology 11/08/20 documented as of this encounter
--- OUTSIDE RECORDS SUMMARY | 2025-04-06 17:14 | XMS_ITS | Encounter Summary ---
Author Organization [facility] Address [address] [facility] [place] [address] Care Team Providers Care Lime Mixer Name Role Phone Mohan Vargas MD Primary Care Provider Encounter Details Date Type Department Care Team (Late st Contact Info) Description 03/18/2020 Lab Requisition [facility] D[facility] Lab [address] [place] [id number] Ry Bennett MD [address] [place] [address] Social History Tobacco Use Types Packs/Day Years Used Date Smoking Tobacco: Never Alcohol Use Standard Drinks/Week Comments Yes 0 (1 standard drink = 0.6 oz pur e alcohol) Comments Unknown Sex and Gender Information Value Date Recorded Sex Assigned at Not on file Legal Sex Female 5:48 PM SUPPLIER 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 Gender Identity Not on file Sexual Orientation Not on file documented as of this encounter Plan of Treatment Not on file documented as of this encounter Procedures Procedure Name Priority Date/Time Associated Diagnosis Comments DERMATOPATHOLOGY Routine 03/17/2020 12:0 0 AM CDT documented in this encounter Results * DERMATOPATHOLOGY (03/17/2020 12:00 AM CDT) Case Report Dermatopathology Report Case: [id number] Authorizing Provider: Ry Bennett MD Collected: 03/17/2020 12:00 AM Ordering Location: [facility] Lab Received: 03/18/2020 11:50 AM Pathologist: Cortney Degroot MD Specimen: Skin, right lat neck 0 4:31 PM CDT DERMATOPATHOLOGY LABORATORY Final Diagnosis Specimen A. SKIN, right lat neck: LENTIGO SIMPLEX (L81.4) 0 4:31 PM CDT DERMATOPATHOLOGY LABORATORY at 1631 CDT Clinical History R/O lentigo, SK, other. 0 4:31 PM CDT DERMATOPATHOLOGY LABORATORY Gross Description Specimen A: Received is one formalin filled container labeled with the patient's name and designated right lat neck. The specimen consists of a shave biopsy measuring [id number]. Jar 0. 0 4:31 PM CDT DERMATOPATHOLOGY LABORATORY Microscopic Description Specimen A. SKIN, right lat neck: There is orthokeratosis. There is increased pigmentation along the basal layer of the epidermis, especially at the base of the elongated rete ridges. A mildly increased number of melanocytes is seen along the basal layer. 0 4:31 PM CDT DERMATOPATHOLOGY LABORATORY Disclaimer An external and internal positive and negative controls are appropriate for the histochemical, immunohistochemical and immunofluorescence stain(s) in this case (if any), except where stated explicitly. The performance characteristics of the stain(s) cited in this report were developed and its performance characteristic determined by the Dermatopathology Laboratory at [facility], directed by Dr. Jairo Cabello. These tests need not be, and therefore are not, approved by the [place] Food and Drug Administration. The tests are used for clinical purposes. Billing Codes Specimen Charges Stain Charges 33171 1 0 4:31 PM CDT DERMATOPATHOLOGY LABORATORY Embedded Images 0 4:31 PM CDT DERMATOPATHOLOGY LABORATORY Pathology/Cytolog y TISSUE SPECIMEN FROM SKIN / Unknown 03/17/2020 03/18/2020 11:50 AM CDT Ry Bennett MD LAB - PATHOLOGY/CYTOLOGY ORD ERABLES Final Result DERMATOPATHOLOGY LABORATORY [facility] - Department of Dermatology [employer] [place]/[address] [phone] documented in this encounter Visit Diagnoses Not on filedocumented in this encounter Care Teams Lime Mixer Relationship Specialty Start Date End Date Mohan Vargas MD [address] [place] [address] PCP - General 04/11/12 documented as of this encounter
--- OUTSIDE RECORDS SUMMARY | 2025-04-06 17:14 | XMS_ITS | Encounter Summary ---
Author Organization [facility] Address [address] [facility] [address] [address] Care Team Providers Care Electrotherapist Name Role Phone Mohan Vargas MD Primary Care Provider Encounter Details Date Type Department Care Team (Late st Contact Info) Description 05/01/2024 Lab Requisition [facility] - Derm[facility] Lab [address] [facility] [place] [id number] [place] [address] Social History Tobacco Use Types Packs/Day Years Used Date Smoking Tobacco: Never Alcohol Use Standard Drinks/Week Comments Yes 0 (1 standard drink = 0.6 oz pur e alcohol) Comments Unknown Sex and Gender Information Value Date Recorded Sex Assigned at Not on file Legal Sex Female 5:48 PM MINIBUS DRIVER Gender Identity Not on file Sexual Orientation Not on file documented as of this encounter Plan of Treatment Not on file documented as of this encounter Procedures Procedure Name Priority Date/Time Associated Diagnosis Comments DERMATOPATHOLOGY Routine 04/29/2024 12:0 0 AM CDT documented in this encounter Results * DERMATOPATHOLOGY (04/29/2024 12:00 AM CDT) Case Report Dermatopathology Report Case: [id number] Authorizing Provider: Ry Bennett MD Collected: 04/29/2024 12:00 AM Ordering Location: [facility] - Received: 05/01/2024 10:45 AM DermPath Lab Pathologist: Escobar Cabello MD Specimen: Skin, left pretibia above ankle 4 5:18 PM CDT DERMATOPATHOLOGY LABORATORY Final Diagnosis Specimen A. SKIN, left pretibia above ankle: DERMATOFIBROMA, ANEURYSMAL (D23.9) (see microscopic description) 4 5:18 PM CDT DERMATOPATHOLOGY LABORATORY at 1718 CDT Clinical History R/O SK vs scar vs melanocytic lesion 4 5:18 PM CDT DERMATOPATHOLOGY LABORATORY Gross Description Specimen A: Received is one formalin filled container labeled with the patient's name and designated left pretibia above ankle. The specimen consists of a shave biopsy measuring 5x5x1 mm. Jar 0. 4 5:18 PM CDT DERMATOPATHOLOGY LABORATORY Microscopic Description Specimen A. SKIN, left pretibia above ankle: There is epidermal hyperplasia. Within the dermis, there are fibrohistiocytic cells (Factor XIII+) in haphazard array among coarse collagen bundles. In addition, there are small vascular channels surrounded by histiocytes that contain hemosiderin which are highlight on Perls iron test. MART-1/Melan A highlights a normal distribution of melanocytes along the basal layer. 4 5:18 PM CDT DERMATOPATHOLOGY LABORATORY Disclaimer An external and internal positive and negative controls are appropriate for the histochemical, immunohistochemical and immunofluorescence stain(s) in this case (if any), except where stated explicitly. The performance characteristics of the stain(s) cited in this report were developed and its performance characteristic determined by the Dermatopathology Laboratory at [facility], directed by Dr. Jairo Cabello. These tests need not be, and therefore are not, approved by the [place] Food and Drug Administration. The tests are used for clinical purposes. Billing Codes Specimen Charges Stain Charges 09718 1 [id number] [id number] 10554 1 1 1 4 5:18 PM CDT DERMATOPATHOLOGY LABORATORY Embedded Images 4 5:18 PM CDT DERMATOPATHOLOGY LABORATORY Pathology/Cytolog y TISSUE SPECIMEN FROM SKIN / Unknown 04/29/2024 05/01/2024 10:45 AM CDT us Ry Bennett MD LAB - PATHOLOGY/CYTOLOGY ORD ERABLES Final Result DERMATOPATHOLOGY LABORATORY [facility] - Department of Dermatology [facility] Medicine [address] [place] [address], [address] [phone] documented in this encounter Visit Diagnoses Not on filedocumented in this encounter Care Teams Electrotherapist Relationship Specialty Start Date End Date Mohan Vargas MD [address] [place] [address] PCP - General 04/11/12 documented as of this encounter
--- OUTSIDE RECORDS SUMMARY | 2025-04-06 17:14 | XMS_ITS | Encounter Summary ---
Author Organization [facility] Address [address] [facility] [place] [address] Care Team Providers Care Compliance Consultant Name Role Phone Mohan Vargas MD Primary Care Provider Encounter Details Date Type Department Care Team (Late st Contact Info) Description 02/01/2022 Lab Requisition [facility] DermPath Lab [address] [facility] [place] [id number] Ry Bennett MD [address] [place] [address] Social History Tobacco Use Types Packs/Day Years Used Date Smoking Tobacco: Never Alcohol Use Standard Drinks/Week Comments Yes 0 (1 standard drink = 0.6 oz pur e alcohol) Comments Unknown Sex and Gender Information Value Date Recorded Sex Assigned at Not on file Legal Sex Female 5:48 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 Gender Identity Not on file Sexual Orientation Not on file documented as of this encounter Plan of Treatment Not on file documented as of this encounter Procedures Procedure Name Priority Date/Time Associated Diagnosis Comments DERMATOPATHOLOGY Routine 01/31/2022 12:0 0 AM CDT documented in this encounter Results * DERMATOPATHOLOGY (01/31/2022 12:00 AM CDT) Case Report Dermatopathology Report Case: [id number] Authorizing Provider: Ry Bennett MD Collected: 01/31/2022 12:00 AM Ordering Location: [facility] Lab Received: 02/01/2022 10:46 AM Pathologist: Escobar Cabello MD Specimen: Skin, left thumb nail 2 5:49 PM CDT DERMATOPATHOLOGY LABORATORY Final Diagnosis Specimen A. SKIN, left thumb nail: NAIL PLATE WITH FUNGAL ELEMENTS AND BACTERIA (B35.1) (See microscopic description and comment) 2 5:49 PM CDT DERMATOPATHOLOGY LABORATORY at 1749 CDT Clinical History PAS Stain R/O Fungus 2 5:49 PM CDT DERMATOPATHOLOGY LABORATORY Gross Description Specimen A: Received is one formalin filled container labeled with the patient's name and designated left thumb nail. The specimen consists of a nail clipping measuring [id number]. There are two additional nail clippings measuring 3y3c5zk and 0g8k7eq. 2 5:49 PM CDT DERMATOPATHOLOGY LABORATORY Microscopic Description Specimen A. SKIN, left thumb nail: Sections show nail plate. Fungal elements are present on Periodic acid-Soas (PAS) stained sections. Bacteria are also present. COMMENT: The histologic findings are suggestive of a non-dermatophyte infection. Correlation with tissue culture is recommended. 2 5:49 PM CDT DERMATOPATHOLOGY LABORATORY Disclaimer An external and internal positive and negative controls are appropriate for the histochemical, immunohistochemical and immunofluorescence stain(s) in this case (if any), except where stated explicitly. The performance characteristics of the stain(s) cited in this report were developed and its performance characteristic determined by the Dermatopathology Laboratory at [facility], directed by Dr. Jairo Cabello. These tests need not be, and therefore are not, approved by the [place] Food and Drug Administration. The tests are used for clinical purposes. Billing Codes Specimen Charges Stain Charges 03196 1 62002 1 2 5:49 PM CDT DERMATOPATHOLOGY LABORATORY Embedded Images 2 5:49 PM CDT DERMATOPATHOLOGY LABORATORY Pathology/Cytolog y TISSUE SPECIMEN FROM SKIN / Unknown 01/31/2022 02/01/2022 10:46 AM CDT Ry Bennett MD LAB - PATHOLOGY/CYTOLOGY ORD ERABLES Final Result DERMATOPATHOLOGY LABORATORY [facility] - Department of Dermatology [facility] Specialized Medicine [address] [facility], 3rd [address] [phone] documented in this encounter Visit Diagnoses Not on filedocumented in this encounter Care Teams Compliance Consultant Relationship Specialty Start Date End Date Mohan Vargas MD [address] [place] [address] PCP - General 04/11/12 documented as of this encounter
--- OUTSIDE RECORDS SUMMARY | 2025-04-06 17:14 | XMS_ITS | Encounter Summary ---
Author Organization [facility] Address [address] [place] [address] Care Team Providers Care Slip Tender Name Role Phone Mohan Vargas MD Primary Care Provider Encounter Details Date Type Department Care Team (Late st Contact Info) Description 05/08/2023 Lab Requisition [facility] - DermPath Lab [address] [facility] [place] [phone] Augusta Garner MD [address] [place] [address] Social History Tobacco Use Types Packs/Day Years Used Date Smoking Tobacco: Never Alcohol Use Standard Drinks/Week Comments Yes 0 (1 standard drink = 0.6 oz pur e alcohol) Comments Unknown Sex and Gender Information Value Date Recorded Sex Assigned at Not on file Legal Sex Female 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 Gender Identity Not on file Sexual Orientation Not on file documented as of this encounter Plan of Treatment Not on file documented as of this encounter Procedures Procedure Name Priority Date/Time Associated Diagnosis Comments DERMATOPATHOLOGY Routine 05/08/2023 2:23 PM CDT documented in this encounter Results * DERMATOPATHOLOGY (05/08/2023 2:23 PM CDT) Case Report Dermatopathology Report Case: [id number] Authorizing Provider: Augusta Garner MD Collected: 05/08/2023 02:23 PM Ordering Location: [facility] DermPath Lab Received: 05/09/2023 01:33 PM Pathologist: Hansa Medina MD Specimen: Skin, left upper arm 3 2:46 PM CDT DERMATOPATHOLOGY LABORATORY Final Diagnosis Specimen A. SKIN, left upper arm: DERMAL SCAR RESIDUAL BASAL CELL CARCINOMA NOT IDENTIFIED (L90.5) 3 2:46 PM T DERMATOPATHOLOGY LABORATORY at 1446 CDT Clinical History BCC, BX Proven 3 2:46 PM T DERMATOPATHOLOGY LABORATORY Gross Description Specimen A: Received is one formalin filled container labeled with the patient's name and designated left upper arm.The specimen consists of an ellipse measuring 92m12k3 mm and is oriented with the suture/notch at the 12 o'clock position labeled on the requisition as notch at 12 o'clock. The 12 to 6 o'clock margin is inked green. The 6 o'clock to 12 o'clock margin is inked black. The 12 o'clock tip is submitted in cassette 1. The 6 o'clock tip is submitted in cassette 2. The remainder of the ellipse is serially sectioned and submitted in cassettes 3 - 4. Jar 0. 3 2:46 PM CDT DERMATOPATHOLOGY LABORATORY Microscopic Description Specimen A. SKIN, left upper arm: There are fibroblasts and collagen bundles oriented parallel to the skin surface. There are elongated blood vessels, some of which are oriented perpendicular to the skin surface. No basal cell carcinoma is identified. 3 2:46 PM CDT DERMATOPATHOLOGY LABORATORY Disclaimer An external and internal positive and negative controls are appropriate for the histochemical, immunohistochemical and immunofluorescence stain(s) in this case (if any), except where stated explicitly. The performance characteristics of the stain(s) cited in this report were developed and its performance characteristic determined by the Dermatopathology Laboratory at [facility], directed by Dr. Jairo Cabello. These tests need not be, and therefore are not, approved by the [place] Food and Drug Administration. The tests are used for clinical purposes. Billing Codes Specimen Charges Stain Charges 67330 1 3 2:46 PM CDT DERMATOPATHOLOGY LABORATORY Embedded Images 3 2:46 PM CDT DERMATOPATHOLOGY LABORATORY Pathology/Cytolo gy TISSUE SPECIMEN FROM SKIN / Unknown 05/08/2023 2:23 PM CDT 05/09/2023 1:33 PM CDT us Augusta Garner MD LAB - PATHOLOGY/CYTOLOGY ORDERA BLES Final Result DERMATOPATHOLOGY LABORATORY [facility] - Department of Dermatology [facility] Medicine [address] [place] [address], [address] [phone] documented in this encounter Visit Diagnoses Not on filedocumented in this encounter Care Teams Slip Tender Relationship Specialty Start Date End Date Mohan Vargas MD [address] [place] [address] PCP - General 04/11/12 documented as of this encounter
--- OUTSIDE RECORDS SUMMARY | 2025-04-06 17:14 | XMS_ITS | Encounter Summary ---
Author Organization [facility] Address [address] [facility] [place] [address] Care Team Providers Care Head Sawyer Name Role Phone Mohan Vargas MD Primary Care Provider Encounter Details Date Type Department Care Team (Late st Contact Info) Description 08/10/2020 Lab Requisition [facility] DermPath Lab [address] [facility] [place] [phone] Ry Bennett MD [address] [place] [address] Social History Tobacco Use Types Packs/Day Years Used Date Smoking Tobacco: Never Alcohol Use Standard Drinks/Week Comments Yes 0 (1 standard drink = 0.6 oz pur e alcohol) Comments Unknown Sex and Gender Information Value Date Recorded Sex Assigned at Not on file Legal Sex Female 5:48 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 Gender Identity Not on file Sexual Orientation Not on file documented as of this encounter Plan of Treatment Not on file documented as of this encounter Procedures Procedure Name Priority Date/Time Associated Diagnosis Comments DERMATOPATHOLOGY Routine 08/09/2020 3:33 AM EDUCATIONAL PSYCHOLOGY TEACHER documented in this encounter Results * DERMATOPATHOLOGY (08/09/2020 3:33 AM EDUCATIONAL PSYCHOLOGY TEACHER) Case Report Dermatopathology Report Case: [id number] Authorizing Provider: Ry Bennett MD Collected: 08/09/2020 03:33 AM Ordering Location: [facility] DermPath Lab Received: 08/10/2020 12:06 PM Pathologist: Hansa Medina MD Specimen: Skin, left helix rim 0 1:06 PM [facility] DERMATOPATHOLOGY LABORATORY Final Diagnosis Specimen A. SKIN, left helix rim: BASAL CELL CARCINOMA, INFILTRATIVE PATTERN (C44.219) PRESENT AT MARGIN 0 1:06 PM [facility] DERMATOPATHOLOGY LABORATORY at 1306 EDUCATIONAL PSYCHOLOGY TEACHER Clinical History R/O BCC. Check margins. 0 1:06 PM [facility] DERMATOPATHOLOGY LABORATORY Gross Description Specimen A: Received is one formalin filled container labeled with the patient's name and designated left helix rim. The specimen consists of a shave biopsy measuring 87x1t9iv. The margin is inked green. Jar 0. 0 1:06 PM [facility] DERMATOPATHOLOGY LABORATORY Microscopic Description Specimen A. SKIN, left helix rim: Within the dermis there are nodular aggregates of basaloid cells associated with fibromyxoid stroma and epithelial-stromal clefts. At the advancing margin of the neoplasm, there are smaller angulated nests that infiltrate the dermis. This lesion is present at the margin of the specimen. 0 1:06 PM [facility] DERMATOPATHOLOGY LABORATORY Disclaimer An external and internal positive and negative controls are appropriate for the histochemical, immunohistochemical and immunofluorescence stain(s) in this case (if any), except where stated explicitly. The performance characteristics of the stain(s) cited in this report were developed and its performance characteristic determined by the Dermatopathology Laboratory at [facility], directed by Dr. Jairo Cabello. These tests need not be, and therefore are not, approved by the [place] Food and Drug Administration. The tests are used for clinical purposes. Billing Codes Specimen Charges Stain Charges 86997 1 0 1:06 PM [facility] DERMATOPATHOLOGY LABORATORY Embedded Images 0 1:06 PM [facility] DERMATOPATHOLOGY LABORATORY Pathology/Cytolo gy TISSUE SPECIMEN FROM SKIN / Unknown 08/09/2020 3:33 AM EDUCATIONAL PSYCHOLOGY TEACHER 08/10/2020 12:06 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 us Ry Bennett MD LAB - PATHOLOGY/CYTOLOGY ORD ERABLES Final Result DERMATOPATHOLOGY LABORATORY [facility] - Department of Dermatology [address], 3rd Floor [place], [place] [address] [place] [address] documented in this encounter Visit Diagnoses Not on filedocumented in this encounter Care Teams Head Sawyer Relationship Specialty Start Date End Date Mohan Vargas MD [address] [place] [address] PCP - General 04/11/12 documented as of this encounter
--- OUTSIDE RECORDS SUMMARY | 2025-04-06 17:14 | XMS_ITS | Encounter Summary ---
Author Organization [facility] Address [address] [place] [address] Care Team Providers Care Classification Counselor Name Role Phone Mohan Vargas MD Primary Care Provider Encounter Details Date Type Department Care Team (Late st Contact Info) Description 02/22/2022 Lab Requisition [facility] DermPath Lab [address] [facility] [place] [phone] Ry Bennett MD [address] [place] [address] Social History Tobacco Use Types Packs/Day Years Used Date Smoking Tobacco: Never Alcohol Use Standard Drinks/Week Comments Yes 0 (1 standard drink = 0.6 oz pur e alcohol) Comments Unknown Sex and Gender Information Value Date Recorded Sex Assigned at Not on file 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 Gender Identity Not on file Sexual Orientation Not on file documented as of this encounter Plan of Treatment Not on file documented as of this encounter Procedures Procedure Name Priority Date/Time Associated Diagnosis Comments DERMATOPATHOLOGY Routine 02/21/2022 3:33 AM CDT documented in this encounter Results * DERMATOPATHOLOGY (02/21/2022 3:33 AM CDT) Case Report Dermatopathology Report Case: [id number] Authorizing Provider: Ry Bennett MD Collected: 02/21/2022 03:33 AM Ordering Location: [facility] DermPath Lab Received: 02/22/2022 12:35 PM Pathologist: Escobar Cabello MD Specimens: A) - Skin, left upper arm B) - Skin, left superior nasal bulb 4:35 PM CDT DERMATOPATHOLOGY LABORATORY Final Diagnosis Specimen A. SKIN, left upper arm: NODULAR DERMAL SCAR (L90.5) Specimen B. SKIN, left superior nasal bulb: BASAL CELL CARCINOMA, INFILTRATIVE PATTERN (C44.311) 4:35 PM CDT DERMATOPATHOLOGY LABORATORY at 1635 CDT Clinical History A-B: R/O: BCC, SCC 4:35 PM CDT DERMATOPATHOLOGY LABORATORY Gross Description Specimen A: Received is one formalin filled container labeled with the patient's name and designated left upper arm. The specimen consists of a shave biopsy measuring 5f4e5ah. Jar 0. Specimen B: Received is one formalin filled container labeled with the patient's name and designated left superior nasal bulb. The specimen consists of a shave biopsy measuring 7g5i7kr. Jar 0. 4:35 PM CDT DERMATOPATHOLOGY LABORATORY Microscopic Description Specimen A. SKIN, left upper arm: There are fibroblasts and collagen bundles oriented parallel to the skin surface with elongated blood vessels, some of which are oriented perpendicular to the skin surface. Specimen B. SKIN, left superior nasal bulb: Within the dermis there are nodular aggregates of basaloid cells associated with fibromyxoid stroma and epithelial-stromal clefts. At the advancing margin of the neoplasm, there are smaller angulated nests that infiltrate the dermis. 4:35 PM CDT DERMATOPATHOLOGY LABORATORY Disclaimer An external and internal positive and negative controls are appropriate for the histochemical, immunohistochemical and immunofluorescence stain(s) in this case (if any), except where stated explicitly. The performance characteristics of the stain(s) cited in this report were developed and its performance characteristic determined by the Dermatopathology Laboratory at [facility], directed by Dr. Jairo Cabello. These tests need not be, and therefore are not, approved by the [place] Food and Drug Administration. The tests are used for clinical purposes. Billing Codes Specimen Charges Stain Charges 52306 60352 1 1 2 4:35 PM CDT DERMATOPATHOLOGY LABORATORY Embedded Images 4:35 PM CDT DERMATOPATHOLOGY LABORATORY Pathology/Cytology TISSUE SPECIMEN FROM SKIN / Unknown 02/21/2022 3:33 AM CDT 02/22/2022 12:35 PM CDT Miscellaneous samples (specimen) TISSUE SPECIMEN FROM SKIN / Unknown 02/21/2022 3:33 AM CDT 02/22/2022 12:35 PM CDT Ry Bennett MD LAB - PATHOLOGY/CYTOLOGY ORD ERABLES Final Result DERMATOPATHOLOGY LABORATORY [facility] - Department of Dermatology [facility] Specialized Medicine [address] [place] [address], [address] [phone] documented in this encounter Visit Diagnoses Not on filedocumented in this encounter Care Teams Classification Counselor Relationship Specialty Start Date End Date Mohan Vargas MD [address] [place] [address] PCP - General 04/11/12 documented as of this encounter
--- OUTSIDE RECORDS SUMMARY | 2025-04-06 17:14 | XMS_ITS | Encounter Summary ---
Author Organization [facility] Address [address] [facility] [place] [address] Care Team Providers Care Skiver Heel Tap Name Role Phone Mohan Vargas MD Primary Care Provider Encounter Details Date Type Department Care Team (Late st Contact Info) Description 05/01/2024 Lab Requisition [facility] - DermPath Lab [address] [facility] [place] [phone] [place] [address] Social History Tobacco Use Types Packs/Day Years Used Date Smoking Tobacco: Never Alcohol Use Standard Drinks/Week Comments Yes 0 (1 standard drink = 0.6 oz pur e alcohol) Comments Unknown Sex and Gender Information Value Date Recorded Sex Assigned at Not on file Legal Sex Female 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
--- OUTSIDE RECORDS SUMMARY | 2025-04-06 17:14 | XMS_ITS | Encounter Summary ---
Author Organization [facility] Address [address] [place] [address] Care Team Providers Care Weatherization Administrator Name Role Phone Mohan Vargas MD Primary Care Provider [phone] Encounter Details Date Type Department Care Team (Late st Contact Info) Description 03/29/2023 Lab Requisition [facility] - DermPath Lab [address] [facility] [place] [phone] [place] [address] Social History Tobacco Use Types Packs/Day Years Used Date Smoking Tobacco: Never Alcohol Use Standard Drinks/Week Comments Yes 0 (1 standard drink = 0.6 oz pur e alcohol) Comments Unknown Sex and Gender Information Value Date Recorded Sex Assigned at Not on file Legal Sex Female 5:48 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 Gender Identity Not on file Sexual Orientation Not on file documented as of this encounter Plan of Treatment Not on file documented as of this encounter Procedures Procedure Name Priority Date/Time Associated Diagnosis Comments DERMATOPATHOLOGY Routine 03/28/2023 12:0 0 AM CDT documented in this encounter Results * DERMATOPATHOLOGY (03/28/2023 12:00 AM CDT) Case Report Dermatopathology Report Case: [id number] Authorizing Provider: Ry Bennett MD Collected: 03/28/2023 12:00 AM Ordering Location: [facility] DermPath Lab Received: 03/29/2023 02:14 PM Pathologist: Escobar Cabello MD Specimens: A) - Skin, left upper arm B) - Skin, left upper mike lip border 3 12:48 PM CDT DERMATOPATHOLOGY LABORATORY Final Diagnosis Specimen A. SKIN, left upper arm: BASAL CELL CARCINOMA, NODULAR TYPE (C44.619) Specimen B. 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 The specimen consists of a punch biopsy measuring 6x6x3 mm. Jar 0. Specimen B: Received is one formalin filled container labeled with the patient's name and designated left upper mike lip border. The specimen consists of a shave biopsy measuring 4x3x1 mm. Jar 0. 3 12:48 PM CDT DERMATOPATHOLOGY LABORATORY Microscopic Description Specimen A. SKIN, left upper arm: Within the dermis there are aggregates of basaloid cells with a high nuclear to cytoplasmic ratio and peripheral palisading. Specimen B. SKIN, left upper mike lip border: The epidermis shows parakeratosis, full thickness disorderly maturation of keratinocytes, mitoses at different levels, and dyskeratotic cells. 3 12:48 PM CDT DERMATOPATHOLOGY LABORATORY Disclaimer An external and internal positive and negative controls are appropriate for the histochemical, immunohistochemical and immunofluorescence stain(s) in this case (if any), except where stated explicitly. The performance characteristics of the stain(s) cited in this report were developed and its performance characteristic determined by the Dermatopathology Laboratory at [facility], directed by Dr. Jairo Cabello. These tests need not be, and therefore are not, approved by the [place] Food and Drug Administration. The tests are used for clinical purposes. Billing Codes Specimen Charges Stain Charges 90861 59881 1 1 3 12:48 PM CDT DERMATOPATHOLOGY LABORATORY Embedded Images 08/11/202 3 12:48 PM CDT DERMATOPATHOLOGY LABORATORY Pathology/Cytology TISSUE SPECIMEN FROM SKIN / Unknown 03/28/2023 03/29/2023 2:14 PM CDT Miscellaneous samples (specimen) TISSUE SPECIMEN FROM SKIN / Unknown 03/28/2023 03/29/2023 2:14 PM CDT Ry Bennett MD LAB - PATHOLOGY/CYTOLOGY ORD ERABLES Final Result DERMATOPATHOLOGY LABORATORY [facility] - Department of Dermatology [facility] Specialized Medicine [address] [place] [address], [address] [phone] documented in this encounter Visit Diagnoses Not on filedocumented in this encounter Care Teams Weatherization Administrator Relationship Specialty Start Date End Date Mohan Vargas MD [address] [place] [address] PCP - General 04/11/12 documented as of this encounter
--- OUTSIDE RECORDS SUMMARY | 2025-04-06 17:14 | XMS_ITS | Encounter Summary ---
Author Organization [facility] Health Address [address] [place] [address] Care Team Providers Care Laboratory Development Technician Name Role Phone Mohan Vargas MD Primary Care Provider Encounter Details Date Type Department Care Team (Late st Contact Info) Description 09/12/2018 Lab Requisition [facility] DermPath Lab [address] [place] [id number] Ry Bennett MD [address] [place] [address] Social History Tobacco Use Types Packs/Day Years Used Date Smoking Tobacco: Never Alcohol Use Standard Drinks/Week Comments Yes 0 (1 standard drink = 0.6 oz pur e alcohol) Comments Unknown Sex and Gender Information Value Date Recorded Sex Assigned at Not on file Legal Sex Female 5:48 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 Gender Identity Not on file Sexual Orientation Not on file documented as of this encounter Plan of Treatment Not on file documented as of this encounter Procedures Procedure Name Priority Date/Time Associated Diagnosis Comments DERMATOPATHOLOGY Routine 09/11/2018 12:0 0 AM FRAME OPENER documented in this encounter Results * DERMATOPATHOLOGY (09/11/2018 12:00 AM FRAME OPENER) Case Report Dermatopathology Report Case: [id number] Authorizing Provider: Ry Bennett MD Collected: 09/11/2018 12:00 AM Pathologist: Corrie Dowell MD Received: 09/12/2018 02:18 PM Specimen: Skin, right side neck below angle of jaw 01/25/201 9 3:40 PM [facility] DERMATOPATHOLOGY LABORATORY Final Diagnosis Specimen A. 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 3:40 PM [facility] DERMATOPATHOLOGY LABORATORY Gross Description Specimen A: Received is one formalin filled container labeled with the patient's name and designated right side neck below angle of jaw. The specimen consists of a shave biopsy measuring [id number]. Jar 0. 3:40 PM [facility] DERMATOPATHOLOGY LABORATORY Microscopic Description Specimen A. SKIN, right side neck below angle of jaw: The epidermis shows parakeratosis, full thickness disorderly maturation of keratinocytes, mitoses at different levels, and dyskeratotic cells. 3:40 PM [facility] DERMATOPATHOLOGY LABORATORY Disclaimer An external and internal positive and negative controls are appropriate for the histochemical, immunohistochemical and immunofluorescence stain(s) in this case (if any), except where stated explicitly. The performance characteristics of the stain(s) cited in this report were developed and its performance characteristic determined by the Dermatopathology Laboratory at [facility], directed by Dr. Jairo Cabello. These tests need not be, and therefore are not, approved by the [place] Food and Drug Administration. The tests are used for clinical purposes. Billing Codes Specimen Charges Stain Charges 10244 1 3:40 PM [facility] DERMATOPATHOLOGY LABORATORY Embedded Images 3:40 PM [facility] DERMATOPATHOLOGY LABORATORY Pathology/Cytolog y TISSUE SPECIMEN FROM SKIN / Unknown 09/11/2018 09/12/2018 2:18 PM [facility] us Ry Bennett MD LAB - PATHOLOGY/CYTOLOGY ORD ERABLES Final Result DERMATOPATHOLOGY LABORATORY [facility] - Department of Dermatology [address] [place] [address], 5th Floor Lab [address] [place], [place] [id number] [place] [address] documented in this encounter Visit Diagnoses Not on filedocumented in this encounter Care Teams Laboratory Development Technician Relationship Specialty Start Date End Date Mohan Vargas MD [address] [facility] [place] [address] PCP - General 04/11/12 documented as of this encounter
--- OUTSIDE RECORDS SUMMARY | 2025-04-06 17:14 | XMS_ITS | Clinical Summary ---
Author Organization [facility] Address [address] [facility] [place] [address] Care Team Providers Care Pharm Tech Name Role Phone Mohan Vargas MD Primary Care Provider Source Comments [facility],non-owned Affiliates and Associated Physician Practices is amultiple site organization consisting of ambulatory clinics and hospital sitesin [place], [place], [place] and [place]. This disclosure is being madepursuant to the Care Everywhere program and may not contain all information available regarding this patient. Last updated 18.[facility] Allergies Active Allergy Reactions Criticality Noted Date Comments Kdc:Yellow Dye+Erythromycin Rash Medium 04/11/20 12 Sulfa Drugs Diarrhea Low 04/11/2012 Family History Medical History Relation Name Comments Cancer Father Cancer Mother Cancer Paternal Grandmother Relation Name Status Comments Father Mother Paternal Grandmother Social History Tobacco Use Types Packs/Day Years Used Date Smoking Tobacco: Never Alcohol Use Standard Drinks/Week Comments Yes 0 (1 standard drink = 0.6 oz pur e alcohol) Comments Unknown Sex and Gender Information Value Date Recorded Sex Assigned at Not on file 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 Gender Identity Not on file Sexual Orientation Not on file Plan of Treatment Health Maintenance Due Date Last Done Comments BONE DENSITY TESTING 1935 MEDICARE AWV 12 MONTHS 1935 DTAP/TDAP/TD VACCINES (1 - Tdap) 11/18/1955 PNEUMOCOCCAL VACCINE 50+ (1 of 1 - PCV) 1986 ZOSTER VACCINE (1 of 2) 1986 Respiratory Syncytial Virus (RSV) Vaccine Pt: or over 60 yrs (1 - 1-dose 75+ series) 11/18/2011 COVID-19 VACCINE (2023-2 5 season) 2024 DEPRESSION SCREENING 08/20/2024 INFLUENZA VACCINE (#1) 2025 HEPATITIS B VACCINE Aged Out No longe r eligible based on patient's age to complete this topic HIB VACCINE Aged Out No longer eligi ble based on patient's age to complete this topic HPV VACCINE Aged Out No longer eligi ble based on patient's age to complete this topic MENINGOCOCCAL (Group B) VACC INE SHARED DECISION-MAKING Aged Out No longer eligibl e based on patient's age to complete this topic MENINGOCOCCAL GROUPS A/C/Y/W VACCINE Aged Out No longer eligible b ased on patient's age to complete this topic Insurance MEDICARE [facility] MEDICARE AAR ANTH Care Teams Pharm Tech Relationship Specialty Start Date End Date Mohan Vargas MD [address] [place] [address] PCP - General 04/11/12
--- OUTSIDE RECORDS SUMMARY | 2025-04-06 17:14 | XMS_ITS | Encounter Summary ---
Author Organization [facility] Address [address] [place] [address] Care Team Providers Care Animal Cytologist Name Role Phone Mohan Vargas MD Primary Care Provider Encounter Details Date Type Department Care Team (Late st Contact Info) Description 03/02/2021 Lab Requisition [facility] DermPath Lab [address] [facility] [place] [phone] Ry Bennett MD [address] [place] [address] Social History Tobacco Use Types Packs/Day Years Used Date Smoking Tobacco: Never Alcohol Use Standard Drinks/Week Comments Yes 0 (1 standard drink = 0.6 oz pur e alcohol) Comments Unknown Sex and Gender Information Value Date Recorded Sex Assigned at Not on file Legal 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 Gender Identity Not on file Sexual Orientation Not on file documented as of this encounter Plan of Treatment Not on file documented as of this encounter Procedures Procedure Name Priority Date/Time Associated Diagnosis Comments DERMATOPATHOLOGY Routine 03/01/2021 12:0 0 AM CDT documented in this encounter Results * DERMATOPATHOLOGY (03/01/2021 12:00 AM CDT) Case Report Dermatopathology Report Case: [id number] Authorizing Provider: Ry Bennett MD Collected: 03/01/2021 12:00 AM Ordering Location: [facility] DermPath Lab Received: 03/02/2021 12:52 PM Pathologist: Cortney Degroot MD Specimen: Skin, left paraspinal mid back 1:22 PM CDT DERMATOPATHOLOGY LABORATORY Final Diagnosis Specimen A. SKIN, left paraspinal mid back: BASAL CELL CARCINOMA, NODULAR TYPE (C44.519) NOT PRESENT AT SAMPLED MARGIN 1 1:22 PM CDT DERMATOPATHOLOGY LABORATORY at 1322 CDT Clinical History R/O BCC. Check margins. 1 1:22 PM CDT DERMATOPATHOLOGY LABORATORY Gross Description Specimen A: Received is one formalin filled container labeled with the patients name and designated left paraspinal mid back. The specimen consists of a shave removal measuring [id number]. The margin is inked green. Jar 0. 1 1:22 PM CDT DERMATOPATHOLOGY LABORATORY Microscopic Description Specimen A. SKIN, left paraspinal mid back: Within the dermis there are aggregates of basaloid cells with a high nuclear to cytoplasmic ratio and peripheral palisading. This lesion is not present at the sampled margin of the specimen. 1 1:22 PM CDT DERMATOPATHOLOGY LABORATORY Disclaimer An external and internal positive and negative controls are appropriate for the histochemical, immunohistochemical and immunofluorescence stain(s) in this case (if any), except where stated explicitly. The performance characteristics of the stain(s) cited in this report were developed and its performance characteristic determined by the Dermatopathology Laboratory at [facility], directed by Dr. Jairo Cabello. These tests need not be, and therefore are not, approved by the [place] Food and Drug Administration. The tests are used for clinical purposes. Billing Codes Specimen Charges Stain Charges 22909 1 1 1:22 PM CDT DERMATOPATHOLOGY LABORATORY Embedded Images 1 1:22 PM CDT DERMATOPATHOLOGY LABORATORY Pathology/Cytolog y TISSUE SPECIMEN FROM SKIN / Unknown 03/01/2021 03/02/2021 12:52 PM CDT us Ry Bennett MD LAB - PATHOLOGY/CYTOLOGY ORD ERABLES Final Result DERMATOPATHOLOGY LABORATORY [facility] - Department of Dermatology [address] [phone] documented in this encounter Visit Diagnoses Not on filedocumented in this encounter Care Teams Animal Cytologist Relationship Specialty Start Date End Date Mohan Vargas MD [address] [place] [address] PCP - General 04/11/12 documented as of this encounter
== END 2025-04-06 17:10 | disposition home or self-care (01) ==
PROVIDERS: PCP Family Medicine
DX: R91.8 Other nonspecific abnormal finding of lung field (principal)
CPT/HCPCS: 71046